=== PATIENT | male | born 1940 | race Caucasian/White ===

== ENCOUNTER 2020-07-03 00:29 | Inpatient (IN) | payer OTHER ==
[2020-07-03 01:51] LABS: BASO % 0.5 % (0-2.0); EOS % 1.8 % (0-4.5); HEMOGLOBIN 14.5 GM/dL (11.7-16.9); LYMPH % 16.3 % (8-40); MCH 31.7 pg (25.7-33.7); MCHC 33.8 g/dl (32.0-35.9); MEAN CELL VOLUME 93.9 fl (80-96); MEAN PLT VOLUME 7.9 fl (7.5-11.1); MONO % 8.1 % (3.8-10.2); NEUT % 73.3 % (42.8-82.8); PLATELET COUNT 239 K/MM3 (134-434); RBC 4.58 M/mm3 (4.00-5.60); RDW 13.4 % (11.9-15.9); WHITE BLOOD COUNT 10.8 K/mm3 (4.0-10.0)
[2020-07-03 02:17] LABS: ALBUMIN 3.4 g/dl (3.4-5.0); BLOOD UREA NITROGEN 28.4 mg/dL (7-18); CALCIUM 8.8 mg/dL (8.5-10.1)
[2020-07-03 02:22] LABS: BILIRUBIN,TOTAL 0.9 mg/dL (0.2-1); TOT PROT 6.5 g/dl (6.4-8.2)
[2020-07-03] MEDS ORDERED: POTASSIUM CHLORIDE TABS 20 MEQ TABLET.ER (FP) PO ONE ×2 (02:35→02:44)
[2020-07-03] MEDS ORDERED: MAGNESIUM SULF 50% (8.12 MEQ/2 ML-1 GM VIAL) IVPB ONE (02:35)
[2020-07-03] MEDS ORDERED: MAGNESIUM SULFATE IN WATER 2 GM/50 ML IVPB IVPB ONE (02:44)
[2020-07-03 03:12] LABS: EPI CELLS 14 /uL (0-25.1); HYALINE CASTS 1 /uL (0-3.1); URINE APPEARANCE CLEAR; URINE BACTERIA 5189 /uL (0-1359); URINE BILIRUBIN NEGATIVE (NEGATIVE); URINE COLOR YELLOW; URINE GLUCOSE (UA) NEGATIVE (NEGATIVE); URINE KETONE NEGATIVE (NEGATIVE); URINE LEUK ESTERASE NEGATIVE (NEGATIVE); URINE NITRITE POSITIVE (NEGATIVE); URINE PROTEIN 1+ (NEGATIVE); URINE RBC 16 /uL (0-23.9); URINE UROBILINOGEN 0.2 mg/dL (0.2-1.0)
[2020-07-03 11:37] LABS: URINE CRYSTALS NON SEEN /hpf; URINE WBC 65.6 /uL (0-25.8)
[2020-07-03] MEDS ORDERED: LISINOPRIL 20 MG TABLET ONE (12:47)
[2020-07-03] MEDS: LISINOPRIL 20 MG TABLET PO SCH (13:17)
[2020-07-03] MEDS ORDERED: cloNIDine HCL 0.1 MG TABLET ONE ×2 (14:19→22:09)
[2020-07-03] MEDS: cloNIDine HCL 0.1 MG TABLET PO SCH ×2 (14:36→22:13)
[2020-07-03] MEDS: INSULIN SLIDING SCALE (NOVOLOG) 1 VIAL SQ SCH (16:45)
[2020-07-03] MEDS ORDERED: ATORVASTATIN CA 10 MG TABLET (FP) ONE (22:09)
[2020-07-03] MEDS: ATORVASTATIN CA 10 MG TABLET (FP) PO SCH (22:13)
[2020-07-04 05:59] LABS: HEMATOCRIT 42.6 % (35.4-49); HEMOGLOBIN 14.5 GM/dL (11.7-16.9); LYMPH % 15.7 % (8-40); MCHC 34.1 g/dl (32.0-35.9); MEAN CELL VOLUME 93.9 fl (80-96); MONO % 8.3 % (3.8-10.2); PLATELET COUNT 213 K/MM3 (134-434); RBC 4.54 M/mm3 (4.00-5.60); RDW 13.5 % (11.9-15.9); WHITE BLOOD COUNT 8.6 K/mm3 (4.0-10.0)
[2020-07-04] MEDS ORDERED: cloNIDine HCL 0.1 MG TABLET ONE (06:12)
[2020-07-04] MEDS: cloNIDine HCL 0.1 MG TABLET PO SCH ×3 (06:15→21:55)
[2020-07-04 06:21] LABS: ALBUMIN 3.1 g/dl (3.4-5.0); BLOOD UREA NITROGEN 23.8 mg/dL (7-18); CALCIUM 7.8 mg/dL (8.5-10.1)
[2020-07-04 06:24] LABS: CREATININE 0.9 mg/dL (0.55-1.3)
[2020-07-04 06:26] LABS: BILIRUBIN,TOTAL 0.9 mg/dL (0.2-1)
[2020-07-04] MEDS ORDERED: TAMSULOSIN HCL 0.4 MG CAP ONE (07:28)
[2020-07-04] MEDS: INSULIN SLIDING SCALE (NOVOLOG) 1 VIAL SQ SCH ×3 (07:41→18:32)
[2020-07-04] MEDS ORDERED: LISINOPRIL 20 MG TABLET ONE (08:13)
[2020-07-04] MEDS: TAMSULOSIN HCL 0.4 MG CAP PO SCH (09:02)
[2020-07-04] MEDS: LISINOPRIL 20 MG TABLET PO SCH (09:02)
[2020-07-04 15:26] VITALS: BMI 26.7
[2020-07-04] MEDS: ATORVASTATIN CA 10 MG TABLET (FP) PO SCH (21:54)
[2020-07-05] MEDS: cloNIDine HCL 0.1 MG TABLET PO SCH ×3 (05:45→21:19)
[2020-07-05] MEDS: INSULIN SLIDING SCALE (NOVOLOG) 1 VIAL SQ SCH ×3 (06:01→16:37)
[2020-07-05 10:31] LABS: BASO % 0.9 % (0-2.0); EOS % 3.4 % (0-4.5); HEMATOCRIT 43.9 % (35.4-49); HEMOGLOBIN 14.7 GM/dL (11.7-16.9); LYMPH % 22.5 % (8-40); MCH 31.8 pg (25.7-33.7); MCHC 33.5 g/dl (32.0-35.9); MEAN CELL VOLUME 94.7 fl (80-96); MEAN PLT VOLUME 8.3 fl (7.5-11.1); MONO % 6.9 % (3.8-10.2); NEUT % 66.3 % (42.8-82.8); PLATELET COUNT 242 K/MM3 (134-434); RBC 4.64 M/mm3 (4.00-5.60); RDW 13.7 % (11.9-15.9); WHITE BLOOD COUNT 8.8 K/mm3 (4.0-10.0)
[2020-07-05 10:42] LABS: CALCIUM 8.7 mg/dL (8.5-10.1)
[2020-07-05 10:43] LABS: ALBUMIN 3.2 g/dl (3.4-5.0); BLOOD UREA NITROGEN 21.4 mg/dL (7-18); MAGNESIUM 2.2 mg/dL (1.8-2.4)
[2020-07-05 10:48] LABS: BILIRUBIN,TOTAL 1.3 mg/dL (0.2-1); TOT PROT 6.2 g/dl (6.4-8.2)
[2020-07-05] MEDS: TAMSULOSIN HCL 0.4 MG CAP PO SCH (11:12)
[2020-07-05] MEDS: ENOXAPARIN NA (PORCINE) 40 MG/0.4 ML DISP.SYRIN SQ SCH (11:12)
[2020-07-05] MEDS: LISINOPRIL 20 MG TABLET PO SCH (11:12)
[2020-07-05] MEDS: ATORVASTATIN CA 10 MG TABLET (FP) PO SCH (21:19)
[2020-07-06] MEDS: cloNIDine HCL 0.1 MG TABLET PO SCH ×3 (06:18→21:22)
[2020-07-06] MEDS: INSULIN SLIDING SCALE (NOVOLOG) 1 VIAL SQ SCH ×3 (06:19→18:12)
[2020-07-06] MEDS ORDERED: POTASSIUM CHLORIDE TABS 20 MEQ TABLET.ER (FP) PO ONE (08:30)
[2020-07-06] MEDS: ENOXAPARIN NA (PORCINE) 40 MG/0.4 ML DISP.SYRIN SQ SCH (11:46)
[2020-07-06] MEDS: LISINOPRIL 20 MG TABLET PO SCH (11:46)
[2020-07-06] MEDS: TAMSULOSIN HCL 0.4 MG CAP PO SCH (11:48)
[2020-07-06] MEDS: ATORVASTATIN CA 10 MG TABLET (FP) PO SCH (21:22)
[2020-07-07] MEDS: INSULIN SLIDING SCALE (NOVOLOG) 1 VIAL SQ SCH ×3 (06:30→16:50)
[2020-07-07] MEDS ORDERED: metFORMIN HCL 500 MG TABLET (FP) PO SCH (07:00)
[2020-07-07] MEDS: cloNIDine HCL 0.1 MG TABLET PO SCH ×2 (07:18→14:06)
[2020-07-07] MEDS: TAMSULOSIN HCL 0.4 MG CAP PO SCH (09:24)
[2020-07-07] MEDS: ENOXAPARIN NA (PORCINE) 40 MG/0.4 ML DISP.SYRIN SQ SCH (09:25)
[2020-07-07] MEDS: LISINOPRIL 20 MG TABLET PO SCH (09:25)
[2020-07-07 10:46] VITALS: TEMP 98.3
[2020-07-07 13:35] VITALS: BP 149/76; PULSE 74
== END 2020-07-07 16:40 | DRG 690 ==
LOC: JER 00:29 → JERBED 04:32 → J6WEST-2 07-04 10:31
PROVIDERS: ADMIT Internal Medicine; ATTEND Internal Medicine
DX: N39.0 Urinary tract infection, site not specified (principal); E87.0 Hyperosmolality and hypernatremia; I10 Essential (primary) hypertension; E11.9 Type 2 diabetes mellitus without complications; W19.XXXA Unspecified fall, initial encounter; E87.6 Hypokalemia; R26.9 Unspecified abnormalities of gait and mobility; R91.1 Solitary pulmonary nodule; E78.5 Hyperlipidemia, unspecified; N40.0 Benign prostatic hyperplasia without lower urinary tract symptoms; R53.1 Weakness
CPT/HCPCS: 36415; 70450-TC; 71045-TC-FY; 72125-TC; 80053; 81003; 82962; 83735; 84443; 84484; 85025; 87040; 87086; 87186; 93005; 93010; 97116-GP; 97162-GP; 99285-25; C9803; J0735; U0003

== ENCOUNTER 2021-06-25 14:12 | Inpatient (IN) | payer OTHER ==
[2021-06-25 16:08] LABS: BASO % 0.4 % (0-2.0); CHLORIDE 106 mmol/L (98-107); HEMATOCRIT 45.5 % (35.4-49); HEMOGLOBIN 15.5 GM/dL (11.7-16.9); LYMPH % 13.8 % (8-40); MCH 31.7 pg (25.7-33.7); MEAN CELL VOLUME 93.1 fl (80-96); MEAN PLT VOLUME 7.8 fl (7.5-11.1); MONO % 15.7 % (3.8-10.2); NEUT % 70.1 % (42.8-82.8); PLATELET COUNT 223 10^3/uL (134-434); RBC 4.89 M/mm3 (4.00-5.60); RDW 13.9 % (11.9-15.9); SODIUM 142 mmol/L (136-145); WHITE BLOOD COUNT 6.2 K/mm3 (4.0-10.0)
[2021-06-25 16:10] LABS: ALBUMIN 3.3 g/dl (3.4-5.0); ANION GAP 10 MMOL/L (8-16); BLOOD UREA NITROGEN 19.5 mg/dL (7-18); CALCIUM 8.6 mg/dL (8.5-10.1); CO2 26 mmol/L (21-32); GLUCOSE,RANDOM 103 mg/dL (74-106); MAGNESIUM 2.1 mg/dL (1.8-2.4)
[2021-06-25 16:13] LABS: CREATININE 0.9 mg/dL (0.55-1.3); SGOT/AST 72 U/L (15-37); SGPT/ALT 49 U/L (13-61)
[2021-06-25 16:15] LABS: BILIRUBIN,TOTAL 0.7 mg/dL (0.2-1); TOT PROT 6.9 g/dl (6.4-8.2)
[2021-06-25 16:16] LABS: ALK PHOS 112 U/L (45-117)
[2021-06-25 16:22] LABS: INR 1.11 (0.83-1.09)
[2021-06-25 16:25] LABS: ACTIVATED PTT 27.1 SECONDS (25.2-36.5)
[2021-06-25] MEDS ORDERED: SODIUM CHLORIDE 2,517 ML IV ONE (17:35)
[2021-06-25 17:37] LABS: CALCIUM 8.6 mg/dL (8.5-10.1)
[2021-06-25 17:38] LABS: ALBUMIN 3.4 g/dl (3.4-5.0); BLOOD UREA NITROGEN 19.6 mg/dL (7-18)
[2021-06-25 17:41] LABS: CREATININE 0.9 mg/dL (0.55-1.3)
[2021-06-25 17:42] LABS: TOT PROT 7.1 g/dl (6.4-8.2)
[2021-06-25 17:43] LABS: BILIRUBIN,TOTAL 0.8 mg/dL (0.2-1)
[2021-06-25 17:57] LABS: VENOUS BASE EXCESS -0.1 mmol/L (-2-2); VENOUS O2 SATURATION 45.2 % (70-80); VENOUS PCO2 46.8 mmHg (38-52); VENOUS PH 7.36 (7.310-7.410)
[2021-06-25 18:26] LABS: EPI CELLS 4 /uL (0-25.1); HYALINE CASTS 9 /uL (0-3.1); URINE APPEARANCE CLOUDY; URINE BACTERIA >9,000 /uL (0-1359); URINE BILIRUBIN NEGATIVE (NEGATIVE); URINE COLOR YELLOW; URINE GLUCOSE (UA) NEGATIVE (NEGATIVE); URINE KETONE 1+ (NEGATIVE); URINE LEUK ESTERASE 2+ (NEGATIVE); URINE NITRITE POSITIVE (NEGATIVE); URINE PROTEIN 1+ (NEGATIVE); URINE RBC 149 /uL (0-23.9); URINE UROBILINOGEN 0.2 mg/dL (0.2-1.0); URINE WBC 380 /uL (0-25.8)
[2021-06-25] MEDS ORDERED: CEFTRIAXONE 1,000 MG in DEXTROSE 5%-WATER - 50 ML IVPB ONE (18:45)
[2021-06-25] MEDS ORDERED: ACETAMINOPHEN 1000 MG/100 ML BAG IVPB ONE (18:59)
[2021-06-25] MEDS ORDERED: ACETAMINOPHEN INJECTION 100 ML IVPB ONE (19:32)
[2021-06-25] MEDS ORDERED: CEFTRIAXONE 1 GM/50 ML BAG ONE (19:32)
[2021-06-26] MEDS ORDERED: POLYETHYLENE GLYCOL (HEALTHYLAX) 3350 17 GM PACKET PO PRN (00:22)
[2021-06-26] MEDS ORDERED: ACETAMINOPHEN 325 MG TABLET (FP) PO PRN (00:22)
[2021-06-26] MEDS: TAMSULOSIN HCL 0.4 MG CAP PO SCH (10:00)
[2021-06-26] MEDS ORDERED: CEFTRIAXONE 1 GM/50 ML BAG ONE (11:56)
[2021-06-26] MEDS ORDERED: ENOXAPARIN NA (PORCINE) 40 MG/0.4 ML DISP.SYRIN SQ ONE (11:56)
[2021-06-26] MEDS ORDERED: LISINOPRIL 20 MG TABLET ONE (11:56)
[2021-06-26] MEDS ORDERED: TAMSULOSIN HCL 0.4 MG CAP ONE (11:56)
[2021-06-26] MEDS: LISINOPRIL 20 MG TABLET PO SCH (11:59)
[2021-06-26] MEDS: ENOXAPARIN NA (PORCINE) 40 MG/0.4 ML DISP.SYRIN SQ SCH (11:59)
[2021-06-26] MEDS: CEFTRIAXONE 1 GM in DEXTROSE 5%-WATER - 50 ML IVPB SCH (11:59)
[2021-06-26 12:02] LABS: BASO % 0.5 % (0-2.0); EOS % 0.5 % (0-4.5); HEMATOCRIT 42.8 % (35.4-49); HEMOGLOBIN 14.4 GM/dL (11.7-16.9); LYMPH % 23.2 % (8-40); MCH 31.7 pg (25.7-33.7); MCHC 33.7 g/dl (32.0-35.9); MEAN CELL VOLUME 94.1 fl (80-96); MEAN PLT VOLUME 7.6 fl (7.5-11.1); MONO % 13.7 % (3.8-10.2); NEUT % 62.1 % (42.8-82.8); PLATELET COUNT 186 10^3/uL (134-434); RBC 4.55 M/mm3 (4.00-5.60); RDW 13.5 % (11.9-15.9); WHITE BLOOD COUNT 4.7 K/mm3 (4.0-10.0)
[2021-06-26 12:21] LABS: CHLORIDE 110 mmol/L (98-107); SODIUM 143 mmol/L (136-145)
[2021-06-26 12:25] LABS: ANION GAP 8 MMOL/L (8-16); BLOOD UREA NITROGEN 23.5 mg/dL (7-18); CALCIUM 8.1 mg/dL (8.5-10.1); CO2 26 mmol/L (21-32); GLUCOSE,RANDOM 96 mg/dL (74-106)
[2021-06-26] MEDS: cloNIDine HCL 0.1 MG TABLET PO SCH ×3 (22:08→22:41)
[2021-06-26] MEDS ORDERED: cloNIDine HCL 0.1 MG TABLET ONE (22:18)
[2021-06-26] MEDS ORDERED: ATORVASTATIN CA 10 MG TABLET (FP) ONE (22:19)
[2021-06-26] MEDS: ATORVASTATIN CA 10 MG TABLET (FP) PO SCH (22:42)
[2021-06-27] MEDS ORDERED: cloNIDine HCL 0.1 MG TABLET ONE ×2 (05:55→14:02)
[2021-06-27] MEDS: cloNIDine HCL 0.1 MG TABLET PO SCH ×3 (06:05→22:23)
[2021-06-27 07:28] LABS: CALCIUM 7.8 mg/dL (8.5-10.1)
[2021-06-27 07:29] LABS: BLOOD UREA NITROGEN 20.8 mg/dL (7-18)
[2021-06-27 07:32] LABS: CREATININE 0.9 mg/dL (0.55-1.3)
[2021-06-27 08:58] LABS: BASO % 0.4 % (0-2.0); EOS % 0.7 % (0-4.5); HEMATOCRIT 42.3 % (35.4-49); HEMOGLOBIN 14.3 GM/dL (11.7-16.9); LYMPH % 24.1 % (8-40); MCH 31.4 pg (25.7-33.7); MCHC 33.8 g/dl (32.0-35.9); MEAN CELL VOLUME 93.1 fl (80-96); MONO % 12.9 % (3.8-10.2); NEUT % 61.9 % (42.8-82.8); PLATELET COUNT 194 10^3/uL (134-434); RBC 4.54 M/mm3 (4.00-5.60); RDW 13.4 % (11.9-15.9); WHITE BLOOD COUNT 4.2 K/mm3 (4.0-10.0)
[2021-06-27] MEDS ORDERED: POTASSIUM CHLORIDE TABS 20 MEQ TABLET.ER (FP) PO ONE ×2 (09:00→10:59)
[2021-06-27] MEDS ORDERED: POTASSIUM CHLORIDE 10 MEQ in SODIUM CHLORIDE 0.45% 1,000 ML IVPB SCH (09:15)
[2021-06-27] MEDS ORDERED: LISINOPRIL 20 MG TABLET ONE (10:59)
[2021-06-27] MEDS ORDERED: ENOXAPARIN NA (PORCINE) 40 MG/0.4 ML DISP.SYRIN SQ ONE (11:00)
[2021-06-27] MEDS ORDERED: TAMSULOSIN HCL 0.4 MG CAP ONE (11:00)
[2021-06-27] MEDS: LISINOPRIL 20 MG TABLET PO SCH (11:26)
[2021-06-27] MEDS: SODIUM CHLORIDE 0.45% 1,000 ML IV SCH (11:26)
[2021-06-27] MEDS: ENOXAPARIN NA (PORCINE) 40 MG/0.4 ML DISP.SYRIN SQ SCH (11:26)
[2021-06-27] MEDS: TAMSULOSIN HCL 0.4 MG CAP PO SCH (11:26)
[2021-06-27] MEDS: CEFTRIAXONE 1 GM in DEXTROSE 5%-WATER - 50 ML IVPB SCH (11:27)
[2021-06-27] MEDS ORDERED: REMDESIVIR 200 MG in SODIUM CHLORIDE 250 ML IVPB ONE (18:00)
[2021-06-27] MEDS: ATORVASTATIN CA 10 MG TABLET (FP) PO SCH (22:23)
[2021-06-28 00:36] VITALS: BMI 25.5
[2021-06-28] MEDS: cloNIDine HCL 0.1 MG TABLET PO SCH ×3 (05:44→21:03)
[2021-06-28] MEDS ORDERED: DEXTROSE 5%-WATER - 50 ML IVPB ONE (10:04)
[2021-06-28] MEDS ORDERED: cefTRIAXone SODIUM 1 GM VIAL ONE (10:04)
[2021-06-28] MEDS: LISINOPRIL 20 MG TABLET PO SCH (10:24)
[2021-06-28] MEDS: CEFTRIAXONE 1 GM in DEXTROSE 5%-WATER - 50 ML IVPB SCH (10:24)
[2021-06-28] MEDS: TAMSULOSIN HCL 0.4 MG CAP PO SCH (10:24)
[2021-06-28] MEDS: ENOXAPARIN NA (PORCINE) 40 MG/0.4 ML DISP.SYRIN SQ SCH (11:13)
[2021-06-28 12:00] LABS: BLOOD UREA NITROGEN 25.4 mg/dL (7-18)
[2021-06-28 12:03] LABS: CALCIUM 8.1 mg/dL (8.5-10.1); CREATININE 0.8 mg/dL (0.55-1.3)
[2021-06-28 12:05] LABS: BILIRUBIN,TOTAL 0.6 mg/dL (0.2-1); TOT PROT 5.8 g/dl (6.4-8.2)
[2021-06-28 12:14] LABS: ALBUMIN 2.6 g/dl (3.4-5.0)
[2021-06-28] MEDS: REMDESIVIR 100 MG in SODIUM CHLORIDE 250 ML IVPB SCH (17:38)
[2021-06-28] MEDS: ATORVASTATIN CA 10 MG TABLET (FP) PO SCH (21:03)
[2021-06-29] MEDS: cloNIDine HCL 0.1 MG TABLET PO SCH ×3 (06:38→21:20)
[2021-06-29] MEDS: LISINOPRIL 20 MG TABLET PO SCH (11:38)
[2021-06-29] MEDS: ENOXAPARIN NA (PORCINE) 40 MG/0.4 ML DISP.SYRIN SQ SCH (11:38)
[2021-06-29] MEDS: TAMSULOSIN HCL 0.4 MG CAP PO SCH (11:38)
[2021-06-29] MEDS: CEPHALEXIN MONOHYDRATE 500 MG CAPSULE (UD) PO SCH ×2 (11:38→21:19)
[2021-06-29] MEDS: SODIUM CHLORIDE 0.45% 1,000 ML IV SCH (11:39)
[2021-06-29] MEDS: REMDESIVIR 100 MG in SODIUM CHLORIDE 250 ML IVPB SCH (17:22)
[2021-06-29] MEDS: ATORVASTATIN CA 10 MG TABLET (FP) PO SCH (21:20)
[2021-06-30] MEDS: cloNIDine HCL 0.1 MG TABLET PO SCH ×3 (06:10→22:07)
[2021-06-30] MEDS: CEPHALEXIN MONOHYDRATE 500 MG CAPSULE (UD) PO SCH ×2 (12:13→22:07)
[2021-06-30] MEDS: LISINOPRIL 20 MG TABLET PO SCH (12:13)
[2021-06-30] MEDS: ENOXAPARIN NA (PORCINE) 40 MG/0.4 ML DISP.SYRIN SQ SCH (12:13)
[2021-06-30] MEDS: TAMSULOSIN HCL 0.4 MG CAP PO SCH (12:13)
[2021-06-30] MEDS: ATORVASTATIN CA 10 MG TABLET (FP) PO SCH (22:07)
[2021-07-01] MEDS: cloNIDine HCL 0.1 MG TABLET PO SCH (05:48)
[2021-07-01] MEDS ORDERED: PT OWN MED DRAWER 7, Y5N ONE (09:49)
[2021-07-01] MEDS: ENOXAPARIN NA (PORCINE) 40 MG/0.4 ML DISP.SYRIN SQ SCH (09:54)
[2021-07-01] MEDS: LISINOPRIL 20 MG TABLET PO SCH (09:54)
[2021-07-01] MEDS: TAMSULOSIN HCL 0.4 MG CAP PO SCH (09:55)
[2021-07-01] MEDS: CEPHALEXIN MONOHYDRATE 500 MG CAPSULE (UD) PO SCH (09:55)
[2021-07-01 10:40] VITALS: BP 138/69; PULSE 80; TEMP 98.2
== END 2021-07-01 10:48 | disposition home health service (06) | DRG 178 ==
LOC: JER 14:12 → JERBED 15:28 → J5S 06-27 21:38
PROVIDERS: ADMIT Hospitalist; ATTEND Internal Medicine
DX: U07.1 COVID-19 (principal); M62.82 Rhabdomyolysis; N39.0 Urinary tract infection, site not specified; I10 Essential (primary) hypertension; E11.9 Type 2 diabetes mellitus without complications; I44.0 Atrioventricular block, first degree; R55 Syncope and collapse; Z88.0 Allergy status to penicillin; B96.20 Unspecified Escherichia coli [E. coli] as the cause of diseases classified elsewhere
CPT/HCPCS: 36415; 70450-TC; 71045-TC-FY; 72125-TC; 72170-TC-FY; 73552-TC-LT-FY; 80048; 80053; 81003; 82550; 82553; 82803; 82962; 83605; 83735; 84484; 85025; 85610; 85730; 86140; 86850; 86900; 86901; 87040; 87086; 87186; 93005; 93010; 97116-GP; 97161-GP; 99285-25; C9399; C9803; J0131; J0735; U0003; U0005

== ENCOUNTER 2021-11-29 09:16 | Inpatient (IN) | payer OTHER ==
[2021-11-29 09:37] VITALS: BMI 25.8
[2021-11-29] MEDS ORDERED: SODIUM CHLORIDE 0.9% 1000 ML INFUS.BAG IV ONE ×2 (10:26→13:35)
[2021-11-29 11:18] LABS: BASO % 0.3 % (0-2.0); HEMATOCRIT 43.9 % (35.4-49); HEMOGLOBIN 14.8 GM/dL (11.7-16.9); LYMPH % 7.7 % (8-40); MCH 31.5 pg (25.7-33.7); MCHC 33.7 g/dl (32.0-35.9); MEAN CELL VOLUME 93.4 fl (80-96); MONO % 10.2 % (3.8-10.2); NEUT % 81.8 % (42.8-82.8); PLATELET COUNT 190 10^3/uL (134-434); RDW 14.4 % (11.9-15.9); WHITE BLOOD COUNT 11.5 K/mm3 (4.0-10.0)
[2021-11-29] MEDS ORDERED: dilTIAZem HCL 50 MG/10 ML - 10 ML VIAL IVPUSH ONE (11:29)
[2021-11-29 11:39] LABS: CHLORIDE 108 mmol/L (98-107); SODIUM 142 mmol/L (136-145)
[2021-11-29 11:41] LABS: ALBUMIN 3.5 g/dl (3.4-5.0)
[2021-11-29 11:42] LABS: ANION GAP 13 MMOL/L (8-16); BLOOD UREA NITROGEN 44.8 mg/dL (7-18); CO2 22 mmol/L (21-32); GLUCOSE,RANDOM 189 mg/dL (74-106)
[2021-11-29 11:44] LABS: CREATININE 2.3 mg/dL (0.55-1.3)
[2021-11-29 11:45] LABS: SGOT/AST 103 U/L (15-37); SGPT/ALT 45 U/L (13-61)
[2021-11-29 11:46] LABS: BILIRUBIN,TOTAL 1.4 mg/dL (0.2-1); TOT PROT 7.2 g/dl (6.4-8.2)
[2021-11-29 11:48] LABS: ALK PHOS 120 U/L (45-117)
[2021-11-29 14:33] LABS: EPI CELLS 2 /uL (0-25.1); HYALINE CASTS 2 /uL (0-3.1); PH,URINE 5.5 (5.0-8.0); URINE APPEARANCE CLEAR; URINE BACTERIA >9,000 /uL (0-1359); URINE BILIRUBIN NEGATIVE (NEGATIVE); URINE COLOR YELLOW; URINE GLUCOSE (UA) NEGATIVE (NEGATIVE); URINE KETONE TRACE (NEGATIVE); URINE LEUK ESTERASE 1+ (NEGATIVE); URINE NITRITE POSITIVE (NEGATIVE); URINE PROTEIN 1+ (NEGATIVE); URINE RBC 128 /uL (0-23.9); URINE UROBILINOGEN 0.2 mg/dL (0.2-1.0); URINE WBC 148 /uL (0-25.8)
[2021-11-29] MEDS ORDERED: SODIUM CHLORIDE 1,000 ML IV SCH (17:15)
[2021-11-29] MEDS ORDERED: CEFTRIAXONE 1,000 MG in DEXTROSE 5%-WATER - 50 ML IVPB SCH (17:30)
[2021-11-29] MEDS ORDERED: CEFTRIAXONE 1 GM/50 ML BAG ONE (18:12)
[2021-11-29 18:42] LABS: CHLORIDE 113 mmol/L (98-107); SODIUM 146 mmol/L (136-145)
[2021-11-29 18:43] LABS: CALCIUM 8.4 mg/dL (8.5-10.1)
[2021-11-29 18:44] LABS: ANION GAP 7 MMOL/L (8-16); BLOOD UREA NITROGEN 41.9 mg/dL (7-18); CO2 26 mmol/L (21-32); GLUCOSE,RANDOM 138 mg/dL (74-106)
[2021-11-29 18:47] LABS: CREATININE 1.6 mg/dL (0.55-1.3)
[2021-11-29] MEDS: SODIUM CHLORIDE 0.45% 1,000 ML IV SCH (22:19)
[2021-11-29] MEDS: ATORVASTATIN CA 10 MG TABLET (FP) PO SCH (22:20)
[2021-11-30 07:31] LABS: BASO % 0.2 % (0-2.0); HEMATOCRIT 40.6 % (35.4-49); HEMOGLOBIN 13.6 GM/dL (11.7-16.9); LYMPH % 6.3 % (8-40); MCH 31.2 pg (25.7-33.7); MCHC 33.6 g/dl (32.0-35.9); MEAN CELL VOLUME 92.9 fl (80-96); MEAN PLT VOLUME 8.5 fl (7.5-11.1); MONO % 8.4 % (3.8-10.2); NEUT % 85.1 % (42.8-82.8); PLATELET COUNT 154 10^3/uL (134-434); RBC 4.37 M/mm3 (4.00-5.60); RDW 14.2 % (11.9-15.9)
[2021-11-30 07:54] LABS: CHLORIDE 112 mmol/L (98-107); SODIUM 146 mmol/L (136-145)
[2021-11-30 07:57] LABS: CALCIUM 8.2 mg/dL (8.5-10.1)
[2021-11-30 07:58] LABS: ALBUMIN 2.9 g/dl (3.4-5.0); ANION GAP 9 MMOL/L (8-16); BLOOD UREA NITROGEN 32.5 mg/dL (7-18); CO2 26 mmol/L (21-32); GLUCOSE,RANDOM 142 mg/dL (74-106)
[2021-11-30 08:01] LABS: CREATININE 1.2 mg/dL (0.55-1.3); SGOT/AST 126 U/L (15-37); SGPT/ALT 59 U/L (13-61)
[2021-11-30 08:02] LABS: TOT PROT 5.9 g/dl (6.4-8.2)
[2021-11-30 08:03] LABS: BILIRUBIN,TOTAL 1.9 mg/dL (0.2-1)
[2021-11-30 08:04] LABS: ALK PHOS 92 U/L (45-117)
[2021-11-30] MEDS ORDERED: DEXTROSE 5%-WATER - 50 ML IVPB ONE (09:13)
[2021-11-30] MEDS ORDERED: cefTRIAXone SODIUM 1 GM VIAL ONE (09:13)
[2021-11-30] MEDS: CEFTRIAXONE 1 GM in DEXTROSE 5%-WATER - 50 ML IVPB SCH (09:31)
[2021-11-30] MEDS: TAMSULOSIN HCL 0.4 MG CAP PO SCH (09:32)
[2021-11-30] MEDS ORDERED: ENOXAPARIN NA (PORCINE) 30 MG/0.3 ML DISP.SYRIN SQ SCH (10:00)
[2021-11-30] MEDS ORDERED: METOPROLOL TARTRATE 5 MG/5 ML VIAL IVPUSH ONE (10:30)
[2021-11-30 13:25] LABS: N-TERMINAL BNP 711.4 pg/ml (5-450)
[2021-11-30] MEDS ORDERED: metoPROLOL SUCCINATE 25 MG TAB.SR.24H (FP) PO ONE (14:42)
[2021-11-30] MEDS: METOPROLOL TARTRATE 5 MG/5 ML VIAL IVPUSH PRN ×2 (17:34→22:52)
[2021-11-30] MEDS: ATORVASTATIN CA 10 MG TABLET (FP) PO SCH (21:58)
[2021-11-30] MEDS: APIXABAN 5 MG TABLET PO SCH (21:58)
[2021-11-30] MEDS: SODIUM CHLORIDE 0.45% 1,000 ML IV SCH (22:47)
[2021-12-01] MEDS ORDERED: LORazepam 2 MG/ML SDV VIAL IVPUSH ONE (04:36)
[2021-12-01 08:25] LABS: HEMATOCRIT 43.3 % (35.4-49); HEMOGLOBIN 14.4 GM/dL (11.7-16.9); MCH 31.3 pg (25.7-33.7); MCHC 33.3 g/dl (32.0-35.9); MEAN PLT VOLUME 9.1 fl (7.5-11.1); PLATELET COUNT 153 10^3/uL (134-434); RDW 14.5 % (11.9-15.9)
[2021-12-01 08:43] LABS: ALBUMIN 2.9 g/dl (3.4-5.0)
[2021-12-01 08:47] LABS: CREATININE 0.8 mg/dL (0.55-1.3)
[2021-12-01 08:48] LABS: BILIRUBIN,TOTAL 1.6 mg/dL (0.2-1); TOT PROT 5.9 g/dl (6.4-8.2)
[2021-12-01] MEDS ORDERED: DEXTROSE 5%-WATER - 50 ML IVPB ONE (10:21)
[2021-12-01] MEDS ORDERED: cefTRIAXone SODIUM 1 GM VIAL ONE (10:21)
[2021-12-01] MEDS: CEFTRIAXONE 1 GM in DEXTROSE 5%-WATER - 50 ML IVPB SCH (10:23)
[2021-12-01] MEDS: TAMSULOSIN HCL 0.4 MG CAP PO SCH (10:24)
[2021-12-01] MEDS: APIXABAN 5 MG TABLET PO SCH ×2 (10:24→22:05)
[2021-12-01] MEDS: SODIUM CHLORIDE 0.45% 1,000 ML IV SCH ×2 (15:30→22:05)
[2021-12-01] MEDS: QUEtiapine FUMARATE 25 MG TABLET PO SCH (22:05)
[2021-12-01] MEDS: ATORVASTATIN CA 10 MG TABLET (FP) PO SCH (22:05)
[2021-12-02] MEDS: SODIUM CHLORIDE 0.45% 1,000 ML IV SCH ×2 (03:39→17:25)
[2021-12-02 08:11] LABS: HEMATOCRIT 39.3 % (35.4-49); MCH 31.2 pg (25.7-33.7); MCHC 33.2 g/dl (32.0-35.9); MEAN CELL VOLUME 94.1 fl (80-96); MEAN PLT VOLUME 9.1 fl (7.5-11.1); PLATELET COUNT 160 10^3/uL (134-434); RBC 4.18 M/mm3 (4.00-5.60); WHITE BLOOD COUNT 9.9 K/mm3 (4.0-10.0)
[2021-12-02 08:21] LABS: CALCIUM 7.8 mg/dL (8.5-10.1)
[2021-12-02 08:22] LABS: ALBUMIN 2.6 g/dl (3.4-5.0)
[2021-12-02 08:25] LABS: BILIRUBIN,TOTAL 1.6 mg/dL (0.2-1); TOT PROT 5.6 g/dl (6.4-8.2)
[2021-12-02 08:28] LABS: BLOOD UREA NITROGEN 26.7 mg/dL (7-18)
[2021-12-02] MEDS ORDERED: cefTRIAXone SODIUM 1 GM VIAL ONE (09:31)
[2021-12-02] MEDS ORDERED: DEXTROSE 5%-WATER - 50 ML IVPB ONE (09:32)
[2021-12-02] MEDS: CEFTRIAXONE 1 GM in DEXTROSE 5%-WATER - 50 ML IVPB SCH (10:06)
[2021-12-02] MEDS: APIXABAN 5 MG TABLET PO SCH ×2 (10:06→21:01)
[2021-12-02] MEDS: TAMSULOSIN HCL 0.4 MG CAP PO SCH (10:06)
[2021-12-02] MEDS: QUEtiapine FUMARATE 25 MG TABLET PO SCH (21:01)
[2021-12-02] MEDS: ATORVASTATIN CA 10 MG TABLET (FP) PO SCH (21:01)
[2021-12-03 07:00] LABS: HEMATOCRIT 37.8 % (35.4-49); HEMOGLOBIN 12.8 GM/dL (11.7-16.9); MCH 31.9 pg (25.7-33.7); MCHC 33.8 g/dl (32.0-35.9); MEAN CELL VOLUME 94.4 fl (80-96); MEAN PLT VOLUME 8.6 fl (7.5-11.1); PLATELET COUNT 169 10^3/uL (134-434); RBC 4.01 M/mm3 (4.00-5.60)
[2021-12-03 07:36] LABS: CALCIUM 7.4 mg/dL (8.5-10.1)
[2021-12-03 07:37] LABS: ALBUMIN 2.3 g/dl (3.4-5.0); BLOOD UREA NITROGEN 21.5 mg/dL (7-18)
[2021-12-03 07:40] LABS: CREATININE 0.8 mg/dL (0.55-1.3)
[2021-12-03 07:42] LABS: BILIRUBIN,TOTAL 1.3 mg/dL (0.2-1); TOT PROT 5.2 g/dl (6.4-8.2)
[2021-12-03] MEDS ORDERED: cefTRIAXone SODIUM 1 GM VIAL ONE (08:04)
[2021-12-03] MEDS ORDERED: DEXTROSE 5%-WATER - 50 ML IVPB ONE (08:04)
[2021-12-03] MEDS: TAMSULOSIN HCL 0.4 MG CAP PO SCH (09:18)
[2021-12-03] MEDS: APIXABAN 5 MG TABLET PO SCH ×2 (09:18→21:38)
[2021-12-03] MEDS: CEFTRIAXONE 1 GM in DEXTROSE 5%-WATER - 50 ML IVPB SCH (09:18)
[2021-12-03 16:51] LABS: MAGNESIUM 1.9 mg/dL (1.8-2.4)
[2021-12-03 16:55] LABS: PHOSPHOROUS 2.7 mg/dL (2.5-4.9)
[2021-12-03 16:59] LABS: N-TERMINAL BNP 2501.4 pg/ml (5-450)
[2021-12-03] MEDS: ATORVASTATIN CA 10 MG TABLET (FP) PO SCH (21:38)
[2021-12-03] MEDS: QUEtiapine FUMARATE 25 MG TABLET PO SCH (21:38)
[2021-12-04] MEDS: TAMSULOSIN HCL 0.4 MG CAP PO SCH (09:25)
[2021-12-04] MEDS ORDERED: cefTRIAXone SODIUM 1 GM VIAL ONE (09:34)
[2021-12-04] MEDS ORDERED: DEXTROSE 5%-WATER - 50 ML IVPB ONE (09:34)
[2021-12-04] MEDS: CEFTRIAXONE 1 GM in DEXTROSE 5%-WATER - 50 ML IVPB SCH (09:44)
[2021-12-04] MEDS: APIXABAN 5 MG TABLET PO SCH ×2 (09:46→21:17)
[2021-12-04] MEDS: ACETAMINOPHEN 325 MG TABLET (FP) PO PRN ×2 (13:35→21:17)
[2021-12-04] MEDS: ATORVASTATIN CA 10 MG TABLET (FP) PO SCH (21:17)
[2021-12-04] MEDS: QUEtiapine FUMARATE 25 MG TABLET PO SCH (21:17)
[2021-12-05] MEDS ORDERED: DEXTROSE 5%-WATER - 50 ML IVPB ONE (09:26)
[2021-12-05] MEDS ORDERED: cefTRIAXone SODIUM 1 GM VIAL ONE (09:26)
[2021-12-05] MEDS: TAMSULOSIN HCL 0.4 MG CAP PO SCH (10:12)
[2021-12-05] MEDS: APIXABAN 5 MG TABLET PO SCH ×2 (10:12→22:01)
[2021-12-05] MEDS: CEFTRIAXONE 1 GM in DEXTROSE 5%-WATER - 50 ML IVPB SCH (10:13)
[2021-12-05] MEDS: ATORVASTATIN CA 10 MG TABLET (FP) PO SCH (22:01)
[2021-12-05] MEDS: QUEtiapine FUMARATE 25 MG TABLET PO SCH (22:01)
[2021-12-06 07:03] LABS: HEMATOCRIT 44.9 % (35.4-49); HEMOGLOBIN 14.8 GM/dL (11.7-16.9); MCH 30.9 pg (25.7-33.7); MCHC 33.1 g/dl (32.0-35.9); MEAN CELL VOLUME 93.4 fl (80-96); MEAN PLT VOLUME 7.5 fl (7.5-11.1); PLATELET COUNT 282 10^3/uL (134-434)
[2021-12-06 07:28] LABS: CALCIUM 8.4 mg/dL (8.5-10.1)
[2021-12-06 07:29] LABS: ALBUMIN 2.7 g/dl (3.4-5.0); BLOOD UREA NITROGEN 11.6 mg/dL (7-18)
[2021-12-06 07:31] LABS: CREATININE 0.8 mg/dL (0.55-1.3)
[2021-12-06 07:32] LABS: BILIRUBIN,TOTAL 1.4 mg/dL (0.2-1)
[2021-12-06 07:33] LABS: TOT PROT 6.3 g/dl (6.4-8.2)
[2021-12-06] MEDS ORDERED: REGADENOSON 0.4 MG/5 ML PRE-FILLED SYRINGE IVPUSH ONE ×2 (10:05→11:30)
[2021-12-06] MEDS: TAMSULOSIN HCL 0.4 MG CAP PO SCH (13:40)
[2021-12-06] MEDS: APIXABAN 5 MG TABLET PO SCH ×2 (13:41→21:32)
[2021-12-06] MEDS: ACETAMINOPHEN 325 MG TABLET (FP) PO PRN (18:16)
[2021-12-06] MEDS: ATORVASTATIN CA 10 MG TABLET (FP) PO SCH (21:32)
[2021-12-06] MEDS: QUEtiapine FUMARATE 25 MG TABLET PO SCH (21:32)
[2021-12-07] MEDS: APIXABAN 5 MG TABLET PO SCH (10:07)
[2021-12-07] MEDS: TAMSULOSIN HCL 0.4 MG CAP PO SCH (10:07)
[2021-12-07] MEDS: DOCUSATE SODIUM 100 MG CAPSULE (FP) PO SCH ×2 (14:04→21:09)
[2021-12-07] MEDS: ACETAMINOPHEN 325 MG TABLET (FP) PO PRN (14:10)
[2021-12-07] MEDS: ATORVASTATIN CA 10 MG TABLET (FP) PO SCH (21:09)
[2021-12-07] MEDS: QUEtiapine FUMARATE 25 MG TABLET PO SCH (21:09)
[2021-12-08] MEDS: DOCUSATE SODIUM 100 MG CAPSULE (FP) PO SCH ×2 (05:56→14:44)
[2021-12-08 08:43] LABS: ALBUMIN 2.5 g/dl (3.4-5.0); BLOOD UREA NITROGEN 22.6 mg/dL (7-18); CALCIUM 8.2 mg/dL (8.5-10.1)
[2021-12-08 08:46] LABS: CREATININE 0.8 mg/dL (0.55-1.3)
[2021-12-08 08:47] LABS: BILIRUBIN,TOTAL 1.1 mg/dL (0.2-1)
[2021-12-08 08:48] LABS: TOT PROT 6.2 g/dl (6.4-8.2)
[2021-12-08] MEDS: TAMSULOSIN HCL 0.4 MG CAP PO SCH (09:08)
[2021-12-08 10:01] VITALS: BP 136/90; PULSE 82; TEMP 98.3
== END 2021-12-08 15:01 | disposition short-term general hospital (02) | DRG 682 ==
LOC: JER 09:16 → JERBED 13:36 → J4W 21:53
PROVIDERS: ADMIT Internal Medicine; ATTEND Internal Medicine
DX: N17.9 Acute kidney failure, unspecified (principal); I21.4 Non-ST elevation (NSTEMI) myocardial infarction; M62.82 Rhabdomyolysis; N39.0 Urinary tract infection, site not specified; E87.0 Hyperosmolality and hypernatremia; I47.1 Supraventricular tachycardia; I24.9 Acute ischemic heart disease, unspecified; E86.0 Dehydration; B96.20 Unspecified Escherichia coli [E. coli] as the cause of diseases classified elsewhere; I48.91 Unspecified atrial fibrillation; I10 Essential (primary) hypertension; E78.5 Hyperlipidemia, unspecified; R31.9 Hematuria, unspecified; D72.829 Elevated white blood cell count, unspecified; K57.90 Diverticulosis of intestine, part unspecified, without perforation or abscess without bleeding; I49.9 Cardiac arrhythmia, unspecified
CPT/HCPCS: 36415; 70450-TC; 71045-TC-FY; 71250-TC; 76775-TC; 78452-TC; 80048; 80053; 80061; 81003; 82550; 82553; 82962; 83036; 83735; 83880; 84100; 84443; 84484; 85025; 85027; 87086; 87186; 93005; 93010; 93017; 93225; 93226; 93306-TC; 93308; 97116-GP; 97162-GP; 99285-25; A9502; C9803-CS; J2785; U0003; U0005

== ENCOUNTER 2023-01-02 19:34 | Inpatient (IN) | payer OTHER ==
[2023-01-02 21:35] LABS: ARTERIAL BLD GAS O2 SATURATION 99.2 % (95-98); ARTERIAL BLOOD GAS PO2 160.9 mmHg (80-100); ARTERIAL BLOOD GAS pH 7.491 (7.350-7.450); BASO % 0.3 % (0-2.0); EOS % 0.2 % (0-4.5); HEMATOCRIT 33.6 % (35.4-49); HEMOGLOBIN 11.1 GM/dL (11.7-16.9); LYMPH % 9.4 % (8-40); MCH 30.6 pg (25.7-33.7); MCHC 33.2 g/dl (32.0-35.9); MEAN CELL VOLUME 92.4 fl (80-96); MEAN PLT VOLUME 7.4 fl (7.5-11.1); MONO % 9.4 % (3.8-10.2); NEUT % 80.7 % (42.8-82.8); PLATELET COUNT 277 10^3/uL (134-434); RBC 3.63 M/mm3 (4.00-5.60); RDW 17.5 % (11.9-15.9); WHITE BLOOD COUNT 11.5 K/mm3 (4.0-10.0)
[2023-01-02 21:50] LABS: INR 1.62 (0.83-1.09); PROTHROMBIN TIME (PATIENT) 18.7 SEC (9.7-13.0)
[2023-01-02 21:55] LABS: POTASSIUM 4.8 mmol/L (3.5-5.1)
[2023-01-02 21:55] LABS: URINE APPEARANCE TURBID; URINE BILIRUBIN NEGATIVE (NEGATIVE); URINE COLOR DK YELLOW; URINE GLUCOSE (UA) NEGATIVE (NEGATIVE); URINE KETONE 1+ (NEGATIVE); URINE LEUK ESTERASE 2+ (NEGATIVE); URINE NITRITE NEGATIVE (NEGATIVE); URINE PROTEIN 2+ (NEGATIVE)
[2023-01-02 21:58] LABS: ALBUMIN 1.9 g/dl (3.4-5.0); BLOOD UREA NITROGEN 55.7 mg/dL (7-18); CALCIUM 8.5 mg/dL (8.5-10.1); MAGNESIUM 2.1 mg/dL (1.8-2.4)
[2023-01-02 22:01] LABS: CREATININE 1.6 mg/dL (0.55-1.3); PHOSPHOROUS 3.6 mg/dL (2.5-4.9)
[2023-01-02 22:02] LABS: TOT PROT 5.2 g/dl (6.4-8.2)
[2023-01-02 22:03] LABS: BILIRUBIN,TOTAL 0.4 mg/dL (0.2-1)
[2023-01-02 22:05] LABS: URINE BACTERIA 3+ /uL (0-1359); URINE WBC 20 /uL (0-25.8)
[2023-01-02 22:06] LABS: N-TERMINAL BNP 295.1 pg/ml (5-450)
[2023-01-02 22:11] LABS: LACTIC ACID 2.9 mmol/L (0.4-2.0)
[2023-01-03] MEDS ORDERED: SODIUM CHLORIDE 0.9% 500 ML INFUS.BAG IV ONE (01:03)
[2023-01-03] MEDS ORDERED: PANTOPRAZOLE SODIUM 40 MG VIAL IVPUSH ONE ×3 (02:21→18:00)
[2023-01-03 02:27] LABS: LACTIC ACID 2.2 mmol/L (0.4-2.0)
[2023-01-03] MEDS ORDERED: PANTOPRAZOLE SODIUM 40 MG/100 ML BAG IVPB ONE ×2 (03:03→09:55)
[2023-01-03] MEDS ORDERED: SODIUM CHLORIDE 500 ML IV STA (04:32)
[2023-01-03] MEDS ORDERED: MEROPENEM 1 GM in DEXTROSE 5%-WATER 100 ML IVPB SCH ×2 (05:15→06:45)
[2023-01-03] MEDS ORDERED: LACTATED RINGERS SOLUTION 1,000 ML/1,000 ML INFUS.BAG IV SCH (05:30)
[2023-01-03 05:37] LABS: BASO % 0.5 % (0-2.0); EOS % 1.4 % (0-4.5); HEMATOCRIT 35.8 % (35.4-49); HEMOGLOBIN 11.6 GM/dL (11.7-16.9); LYMPH % 12.5 % (8-40); MCH 30.3 pg (25.7-33.7); MCHC 32.3 g/dl (32.0-35.9); MEAN CELL VOLUME 93.9 fl (80-96); MONO % 10.2 % (3.8-10.2); NEUT % 75.4 % (42.8-82.8); PLATELET COUNT 256 10^3/uL (134-434); RBC 3.81 M/mm3 (4.00-5.60); RDW 17.7 % (11.9-15.9); WHITE BLOOD COUNT 10.8 K/mm3 (4.0-10.0)
[2023-01-03] MEDS ORDERED: MEROPENEM 1 GM VIAL (RESTRICTED TO ID) IVPB ONE (06:55)
[2023-01-03] MEDS ORDERED: VANCOMYCIN 1 GM/200 ML PREMIX BAG (RESTRICTED TO ID ONLY) IVPB SCH (07:00)
[2023-01-03 07:17] LABS: HEMATOCRIT 35.9 % (35.4-49); HEMOGLOBIN 11.9 GM/dL (11.7-16.9); MCH 30.8 pg (25.7-33.7); MCHC 33.2 g/dl (32.0-35.9); MEAN CELL VOLUME 92.7 fl (80-96); MEAN PLT VOLUME 7.5 fl (7.5-11.1); PLATELET COUNT 267 10^3/uL (134-434); RBC 3.87 M/mm3 (4.00-5.60); RDW 17.6 % (11.9-15.9); WHITE BLOOD COUNT 9.2 K/mm3 (4.0-10.0)
[2023-01-03 07:21] LABS: POTASSIUM 4.9 mmol/L (3.5-5.1)
[2023-01-03 07:27] LABS: BLOOD UREA NITROGEN 53.9 mg/dL (7-18); CALCIUM 8.3 mg/dL (8.5-10.1)
[2023-01-03 07:30] LABS: CREATININE 1.4 mg/dL (0.55-1.3)
[2023-01-03 07:31] LABS: BILIRUBIN,TOTAL 0.6 mg/dL (0.2-1); TOT PROT 5.2 g/dl (6.4-8.2)
[2023-01-03] MEDS: INSULIN SLIDING SCALE (NOVOLOG) 1 VIAL SQ SCH ×4 (08:04→21:47)
[2023-01-03] MEDS ORDERED: VANCOMYCIN/WATER FOR INJ (PEG) 1,000 MG/200 ML BAG IVPB ONE ×2 (08:10→08:15)
[2023-01-03] MEDS ORDERED: DEXTROSE 5%-NORMAL SALINE 1,000 ML IV SCH (09:45)
[2023-01-03] MEDS ORDERED: PANTOPRAZOLE SODIUM 40 MG VIAL IVPUSH SCH ×2 (10:00)
[2023-01-03] MEDS ORDERED: OCTREOTIDE ACETATE 50 MCG/1 ML - 1 ML VIAL IVPUSH ONE ×2 (14:00→18:00)
[2023-01-03] MEDS ORDERED: OCTREOTIDE ACETATE 200 MCG, OCTREOTIDE ACETATE 1,000 MCG in DEXTROSE 5%-WATER - 496 ML IVPB SCH (14:45)
[2023-01-03] MEDS ORDERED: DEXTROSE 5%-LACTATED RINGERS 1,000 ML IV SCH (15:15)
[2023-01-03 15:50] LABS: BF WBC & OTHER NUCLEATED CELLS 56 /mm3
[2023-01-03 15:51] LABS: BODY FLUID MESOTHELIAL 3 %; BODY FLUID MONOCYTE 50 %
[2023-01-03] MEDS: PANTOPRAZOLE SODIUM 160 MG in SODIUM CHLORIDE 290 ML IVPB SCH (18:26)
[2023-01-03 21:56] LABS: INR 1.24 (0.83-1.09); PROTHROMBIN TIME (PATIENT) 14.3 SEC (9.7-13.0)
[2023-01-03] MEDS: ALBUMIN HUMAN 25% 12.5 GM/50 ML VIAL IV SCH ×2 (23:04)
[2023-01-03] MEDS: CEFEPIME 1 GM in DEXTROSE 5%-WATER 100 ML IVPB SCH (23:20)
[2023-01-04] MEDS ORDERED: ALBUMIN HUMAN 25% 100 ML VIAL IV ONE (00:40)
[2023-01-04] MEDS: PANTOPRAZOLE SODIUM 160 MG in SODIUM CHLORIDE 290 ML IVPB SCH (01:25)
[2023-01-04] MEDS: INSULIN SLIDING SCALE (NOVOLOG) 1 VIAL SQ SCH ×4 (06:09→22:19)
[2023-01-04] MEDS ORDERED: MEROPENEM 1 GM in DEXTROSE 5%-WATER 100 ML IVPB SCH (07:00)
[2023-01-04] MEDS ORDERED: VANCOMYCIN 1 GM/200 ML PREMIX BAG (RESTRICTED TO ID ONLY) IVPB SCH (07:00)
[2023-01-04] MEDS ORDERED: PANTOPRAZOLE SODIUM 160 MG in SODIUM CHLORIDE 290 ML IVPB SCH (08:17)
[2023-01-04] MEDS ORDERED: SPIRONOLACTONE 25 MG TABLET PO SCH (10:00)
[2023-01-04] MEDS: CEFEPIME 1 GM in DEXTROSE 5%-WATER 100 ML IVPB SCH (11:23)
[2023-01-04] MEDS: PANTOPRAZOLE 40 MG TABLET PO SCH ×2 (11:24→22:17)
[2023-01-04 13:11] LABS: BASO % 0.2 % (0-2.0); EOS % 2.3 % (0-4.5); HEMATOCRIT 34.8 % (35.4-49); HEMOGLOBIN 11.5 GM/dL (11.7-16.9); LYMPH % 14.1 % (8-40); MCH 30.9 pg (25.7-33.7); MEAN CELL VOLUME 93.6 fl (80-96); MEAN PLT VOLUME 6.9 fl (7.5-11.1); MONO % 11.3 % (3.8-10.2); NEUT % 72.1 % (42.8-82.8); PLATELET COUNT 256 10^3/uL (134-434); RBC 3.72 M/mm3 (4.00-5.60); RDW 17.7 % (11.9-15.9); WHITE BLOOD COUNT 7.6 K/mm3 (4.0-10.0)
[2023-01-04 13:18] LABS: INR 1.23 (0.83-1.09); PROTHROMBIN TIME (PATIENT) 14.2 SEC (9.7-13.0)
[2023-01-04 13:43] LABS: POTASSIUM 4.4 mmol/L (3.5-5.1)
[2023-01-04] MEDS ORDERED: DEXTROSE 5%-WATER - 1,000 ML IV SCH (13:45)
[2023-01-04 13:48] LABS: CALCIUM 8.3 mg/dL (8.5-10.1)
[2023-01-04 13:49] LABS: ALBUMIN 2.2 g/dl (3.4-5.0); BLOOD UREA NITROGEN 39.7 mg/dL (7-18)
[2023-01-04 13:50] LABS: PHOSPHOROUS 3.1 mg/dL (2.5-4.9)
[2023-01-04 13:51] LABS: CREATININE 1.1 mg/dL (0.55-1.3)
[2023-01-04 13:53] LABS: TOT PROT 5.3 g/dl (6.4-8.2)
[2023-01-04 14:12] LABS: HEPATITIS B SURFACE AG MATERN NON-REACTIVE (NONREACTIVE)
[2023-01-05] MEDS: INSULIN SLIDING SCALE (NOVOLOG) 1 VIAL SQ SCH ×4 (06:04→21:21)
[2023-01-05 06:40] LABS: BASO % 0.6 % (0-2.0); HEMATOCRIT 33.1 % (35.4-49); HEMOGLOBIN 10.8 GM/dL (11.7-16.9); LYMPH % 15.3 % (8-40); MCH 30.8 pg (25.7-33.7); MCHC 32.5 g/dl (32.0-35.9); MEAN CELL VOLUME 94.7 fl (80-96); MEAN PLT VOLUME 7.3 fl (7.5-11.1); NEUT % 69.1 % (42.8-82.8); PLATELET COUNT 261 10^3/uL (134-434); RDW 17.6 % (11.9-15.9); WHITE BLOOD COUNT 6.8 K/mm3 (4.0-10.0)
[2023-01-05 06:59] LABS: POTASSIUM 4.5 mmol/L (3.5-5.1)
[2023-01-05 07:04] LABS: BLOOD UREA NITROGEN 34.3 mg/dL (7-18); MAGNESIUM 1.9 mg/dL (1.8-2.4)
[2023-01-05 07:07] LABS: PHOSPHOROUS 2.4 mg/dL (2.5-4.9)
[2023-01-05 07:09] LABS: BILIRUBIN,TOTAL 1.1 mg/dL (0.2-1)
[2023-01-05] MEDS: PANTOPRAZOLE 40 MG TABLET PO SCH ×2 (09:35→21:18)
[2023-01-05 16:07] LABS: BODY FLUID ALBUMIN 1.4 g/dL (Not Estab.)
[2023-01-06] MEDS: INSULIN SLIDING SCALE (NOVOLOG) 1 VIAL SQ SCH ×4 (06:05→21:28)
[2023-01-06 08:02] LABS: BASO % 0.4 % (0-2.0); EOS % 4.1 % (0-4.5); HEMATOCRIT 34.4 % (35.4-49); HEMOGLOBIN 11.3 GM/dL (11.7-16.9); LYMPH % 17.8 % (8-40); MCHC 32.8 g/dl (32.0-35.9); MEAN CELL VOLUME 94.6 fl (80-96); MEAN PLT VOLUME 7.5 fl (7.5-11.1); MONO % 11.3 % (3.8-10.2); NEUT % 66.4 % (42.8-82.8); PLATELET COUNT 255 10^3/uL (134-434); POTASSIUM 4.4 mmol/L (3.5-5.1); RBC 3.64 M/mm3 (4.00-5.60); RDW 17.6 % (11.9-15.9); WHITE BLOOD COUNT 6.9 K/mm3 (4.0-10.0)
[2023-01-06 08:08] LABS: BLOOD UREA NITROGEN 27.4 mg/dL (7-18); MAGNESIUM 1.8 mg/dL (1.8-2.4)
[2023-01-06 08:09] LABS: ALBUMIN 1.9 g/dl (3.4-5.0)
[2023-01-06 08:12] LABS: CREATININE 0.8 mg/dL (0.55-1.3)
[2023-01-06 08:13] LABS: BILIRUBIN,TOTAL 0.8 mg/dL (0.2-1); TOT PROT 4.9 g/dl (6.4-8.2)
[2023-01-06 08:42] LABS: CALCIUM 7.8 mg/dL (8.5-10.1)
[2023-01-06] MEDS: PANTOPRAZOLE 40 MG TABLET PO SCH ×2 (09:34→21:21)
[2023-01-06 17:22] VITALS: BMI 22.6
[2023-01-06] MEDS: NAPH,MB-DB/K PH,MBDB POWDER PACKET PO SCH (21:21)
[2023-01-07] MEDS: INSULIN SLIDING SCALE (NOVOLOG) 1 VIAL SQ SCH ×4 (06:04→21:43)
[2023-01-07 07:43] LABS: HEMATOCRIT 37.4 % (35.4-49); HEMOGLOBIN 12.1 GM/dL (11.7-16.9); MCH 30.8 pg (25.7-33.7); MCHC 32.3 g/dl (32.0-35.9); MEAN CELL VOLUME 95.4 fl (80-96); MEAN PLT VOLUME 7.5 fl (7.5-11.1); PLATELET COUNT 275 10^3/uL (134-434); RBC 3.91 M/mm3 (4.00-5.60); RDW 17.5 % (11.9-15.9); WHITE BLOOD COUNT 8.5 K/mm3 (4.0-10.0)
[2023-01-07 08:02] LABS: POTASSIUM 4.6 mmol/L (3.5-5.1)
[2023-01-07 08:05] LABS: BLOOD UREA NITROGEN 26.3 mg/dL (7-18); CALCIUM 7.7 mg/dL (8.5-10.1); MAGNESIUM 1.9 mg/dL (1.8-2.4)
[2023-01-07 08:08] LABS: CREATININE 0.9 mg/dL (0.55-1.3)
[2023-01-07 08:10] LABS: BILIRUBIN,TOTAL 0.7 mg/dL (0.2-1)
[2023-01-07] MEDS: PANTOPRAZOLE 40 MG TABLET PO SCH ×2 (09:11→21:41)
[2023-01-07] MEDS: NAPH,MB-DB/K PH,MBDB POWDER PACKET PO SCH ×2 (09:11→21:41)
[2023-01-07] MEDS ORDERED: LACTATED RINGERS SOLUTION 1000 ML INFUS.BAG IV ONE (18:24)
[2023-01-07] MEDS ORDERED: METOPROLOL TARTRATE 25 MG TABLET (FP) PO ONE (18:25)
[2023-01-08] MEDS: INSULIN SLIDING SCALE (NOVOLOG) 1 VIAL SQ SCH ×4 (06:24→22:14)
[2023-01-08 07:14] LABS: BASO % 0.5 % (0-2.0); EOS % 3.6 % (0-4.5); HEMATOCRIT 36.4 % (35.4-49); HEMOGLOBIN 12.3 GM/dL (11.7-16.9); LYMPH % 19.2 % (8-40); MCH 31.2 pg (25.7-33.7); MCHC 33.7 g/dl (32.0-35.9); MEAN CELL VOLUME 92.6 fl (80-96); MEAN PLT VOLUME 7.3 fl (7.5-11.1); MONO % 10.6 % (3.8-10.2); NEUT % 66.1 % (42.8-82.8); PLATELET COUNT 256 10^3/uL (134-434); RBC 3.93 M/mm3 (4.00-5.60); RDW 17.5 % (11.9-15.9); WHITE BLOOD COUNT 8.1 K/mm3 (4.0-10.0)
[2023-01-08 07:25] LABS: POTASSIUM 4.5 mmol/L (3.5-5.1)
[2023-01-08 07:31] LABS: CALCIUM 7.4 mg/dL (8.5-10.1)
[2023-01-08 07:32] LABS: ALBUMIN 1.9 g/dl (3.4-5.0); MAGNESIUM 1.8 mg/dL (1.8-2.4)
[2023-01-08 07:33] LABS: CREATININE 0.8 mg/dL (0.55-1.3)
[2023-01-08 07:34] LABS: BILIRUBIN,TOTAL 0.7 mg/dL (0.2-1)
[2023-01-08 07:35] LABS: PHOSPHOROUS 2.1 mg/dL (2.5-4.9)
[2023-01-08] MEDS: APIXABAN 2.5 MG TABLET PO SCH ×2 (10:03→22:07)
[2023-01-08] MEDS: PANTOPRAZOLE 40 MG TABLET PO SCH ×2 (10:03→22:07)
[2023-01-08] MEDS: NAPH,MB-DB/K PH,MBDB POWDER PACKET PO SCH ×2 (10:03→22:07)
[2023-01-09] MEDS: INSULIN SLIDING SCALE (NOVOLOG) 1 VIAL SQ SCH ×4 (06:24→21:23)
[2023-01-09 08:00] LABS: BASO % 0.5 % (0-2.0); EOS % 3.2 % (0-4.5); HEMATOCRIT 36.1 % (35.4-49); HEMOGLOBIN 11.7 GM/dL (11.7-16.9); LYMPH % 18.8 % (8-40); MCH 30.8 pg (25.7-33.7); MCHC 32.4 g/dl (32.0-35.9); MEAN CELL VOLUME 94.9 fl (80-96); MEAN PLT VOLUME 7.5 fl (7.5-11.1); MONO % 9.7 % (3.8-10.2); NEUT % 67.8 % (42.8-82.8); PLATELET COUNT 271 10^3/uL (134-434); RBC 3.81 M/mm3 (4.00-5.60); RDW 17.8 % (11.9-15.9); WHITE BLOOD COUNT 7.3 K/mm3 (4.0-10.0)
[2023-01-09 08:29] LABS: POTASSIUM 4.3 mmol/L (3.5-5.1)
[2023-01-09 08:33] LABS: MAGNESIUM 1.9 mg/dL (1.8-2.4)
[2023-01-09 08:34] LABS: CALCIUM 7.7 mg/dL (8.5-10.1)
[2023-01-09 08:35] LABS: ALBUMIN 1.9 g/dl (3.4-5.0); BLOOD UREA NITROGEN 21.3 mg/dL (7-18)
[2023-01-09 08:36] LABS: CREATININE 0.8 mg/dL (0.55-1.3)
[2023-01-09 08:39] LABS: BILIRUBIN,TOTAL 0.4 mg/dL (0.2-1); TOT PROT 4.8 g/dl (6.4-8.2)
[2023-01-09] MEDS: PANTOPRAZOLE 40 MG TABLET PO SCH ×2 (09:27→21:23)
[2023-01-09] MEDS: FUROSEMIDE 20 MG TABLET (FP) PO SCH (09:27)
[2023-01-09] MEDS: SPIRONOLACTONE 25 MG TABLET PO SCH (09:27)
[2023-01-09] MEDS: NAPH,MB-DB/K PH,MBDB POWDER PACKET PO SCH (09:27)
[2023-01-09] MEDS: ENOXAPARIN NA (PORCINE) 80 MG/0.8 ML DISP.SYRIN SQ SCH ×2 (09:28→21:23)
[2023-01-09] MEDS ORDERED: NAPH,MB-DB/K PH,MBDB POWDER PACKET PO SCH (22:00)
[2023-01-10] MEDS: INSULIN SLIDING SCALE (NOVOLOG) 1 VIAL SQ SCH ×4 (06:00→22:20)
[2023-01-10 07:56] LABS: BASO % 0.8 % (0-2.0); EOS % 2.4 % (0-4.5); HEMATOCRIT 36.6 % (35.4-49); LYMPH % 19.7 % (8-40); MCH 31.1 pg (25.7-33.7); MCHC 32.7 g/dl (32.0-35.9); MEAN CELL VOLUME 94.9 fl (80-96); MEAN PLT VOLUME 7.8 fl (7.5-11.1); MONO % 9.5 % (3.8-10.2); NEUT % 67.6 % (42.8-82.8); PLATELET COUNT 265 10^3/uL (134-434); RBC 3.85 M/mm3 (4.00-5.60); WHITE BLOOD COUNT 7.4 K/mm3 (4.0-10.0)
[2023-01-10 08:07] LABS: CARCINOEMBRYONIC ANTIGEN 1.1 ng/mL (0.0-4.7)
[2023-01-10 08:14] LABS: POTASSIUM 4.5 mmol/L (3.5-5.1)
[2023-01-10 08:23] LABS: ALBUMIN 1.9 g/dl (3.4-5.0); BLOOD UREA NITROGEN 20.8 mg/dL (7-18); CALCIUM 7.7 mg/dL (8.5-10.1); MAGNESIUM 1.9 mg/dL (1.8-2.4)
[2023-01-10 08:25] LABS: CREATININE 0.9 mg/dL (0.55-1.3); PHOSPHOROUS 2.2 mg/dL (2.5-4.9)
[2023-01-10 08:27] LABS: TOT PROT 4.9 g/dl (6.4-8.2)
[2023-01-10 08:32] LABS: BILIRUBIN,TOTAL 0.6 mg/dL (0.2-1)
[2023-01-10] MEDS: FUROSEMIDE 20 MG TABLET (FP) PO SCH (10:17)
[2023-01-10] MEDS: SPIRONOLACTONE 25 MG TABLET PO SCH (10:17)
[2023-01-10] MEDS: ENOXAPARIN NA (PORCINE) 80 MG/0.8 ML DISP.SYRIN SQ SCH (10:18)
[2023-01-10] MEDS: PANTOPRAZOLE 40 MG TABLET PO SCH ×2 (10:18→22:28)
[2023-01-10] MEDS ORDERED: METOPROLOL TARTRATE 25 MG TABLET (FP) PO SCH (11:45)
[2023-01-10] MEDS ORDERED: NAPH,MB-DB/K PH,MBDB POWDER PACKET PO ONE (14:15)
[2023-01-10 22:08] LABS: GLIADIN ANTIBODY IGA 7 units (0-19); GLIADIN ANTIBODY IGG 3 units (0-19); TRANSGLUTAMINASE IGG < 2 U/mL (0-5)
[2023-01-10] MEDS: METOPROLOL TARTRATE 25 MG TABLET (FP) PO SCH (22:28)
[2023-01-11] MEDS: INSULIN SLIDING SCALE (NOVOLOG) 1 VIAL SQ SCH ×4 (06:02→21:04)
[2023-01-11 08:56] LABS: BASO % 0.6 % (0-2.0); EOS % 1.9 % (0-4.5); HEMOGLOBIN 12.1 GM/dL (11.7-16.9); LYMPH % 18.1 % (8-40); MCH 30.5 pg (25.7-33.7); MEAN CELL VOLUME 95.6 fl (80-96); MEAN PLT VOLUME 7.5 fl (7.5-11.1); MONO % 9.4 % (3.8-10.2); PLATELET COUNT 272 10^3/uL (134-434); RBC 3.98 M/mm3 (4.00-5.60); RDW 18.1 % (11.9-15.9)
[2023-01-11 09:10] LABS: POTASSIUM 4.4 mmol/L (3.5-5.1)
[2023-01-11 09:12] LABS: CALCIUM 7.9 mg/dL (8.5-10.1)
[2023-01-11 09:13] LABS: ALBUMIN 1.9 g/dl (3.4-5.0); BLOOD UREA NITROGEN 22.2 mg/dL (7-18); MAGNESIUM 1.9 mg/dL (1.8-2.4)
[2023-01-11 09:15] LABS: CREATININE 0.9 mg/dL (0.55-1.3); PHOSPHOROUS 2.6 mg/dL (2.5-4.9)
[2023-01-11 09:17] LABS: BILIRUBIN,TOTAL 0.5 mg/dL (0.2-1); TOT PROT 5.1 g/dl (6.4-8.2)
[2023-01-11] MEDS: FUROSEMIDE 20 MG TABLET (FP) PO SCH (09:59)
[2023-01-11] MEDS: METOPROLOL TARTRATE 25 MG TABLET (FP) PO SCH (09:59)
[2023-01-11] MEDS: SPIRONOLACTONE 25 MG TABLET PO SCH (10:00)
[2023-01-11] MEDS: PANTOPRAZOLE 40 MG TABLET PO SCH ×2 (10:01→21:01)
[2023-01-11] MEDS: PINDOLOL 5 MG TABLET PO SCH (21:02)
[2023-01-12 08:10] LABS: POTASSIUM 4.4 mmol/L (3.5-5.1)
[2023-01-12 08:12] LABS: CALCIUM 7.9 mg/dL (8.5-10.1); MAGNESIUM 1.9 mg/dL (1.8-2.4)
[2023-01-12 08:13] LABS: BLOOD UREA NITROGEN 22.8 mg/dL (7-18)
[2023-01-12 08:15] LABS: PHOSPHOROUS 3.5 mg/dL (2.5-4.9)
[2023-01-12] MEDS: INSULIN SLIDING SCALE (NOVOLOG) 1 VIAL SQ SCH ×4 (08:15→22:35)
[2023-01-12 08:17] LABS: BILIRUBIN,TOTAL 0.5 mg/dL (0.2-1); TOT PROT 5.3 g/dl (6.4-8.2)
[2023-01-12] MEDS: SPIRONOLACTONE 25 MG TABLET PO SCH (10:07)
[2023-01-12] MEDS: PANTOPRAZOLE 40 MG TABLET PO SCH ×2 (10:07→21:59)
[2023-01-12] MEDS: PINDOLOL 5 MG TABLET PO SCH ×2 (10:09→21:59)
[2023-01-12] MEDS: FUROSEMIDE 20 MG TABLET (FP) PO SCH (10:09)
[2023-01-12 12:14] LABS: BASO % 0.4 % (0-2.0); EOS % 0.8 % (0-4.5); HEMATOCRIT 38.3 % (35.4-49); HEMOGLOBIN 12.2 GM/dL (11.7-16.9); MCH 30.5 pg (25.7-33.7); MCHC 31.8 g/dl (32.0-35.9); MEAN PLT VOLUME 7.5 fl (7.5-11.1); MONO % 9.5 % (3.8-10.2); NEUT % 76.3 % (42.8-82.8); PLATELET COUNT 276 10^3/uL (134-434); RBC 3.99 M/mm3 (4.00-5.60); RDW 18.3 % (11.9-15.9); WHITE BLOOD COUNT 8.1 K/mm3 (4.0-10.0)
[2023-01-12] MEDS: ENOXAPARIN NA (PORCINE) 80 MG/0.8 ML DISP.SYRIN SQ SCH (21:59)
[2023-01-13] MEDS: INSULIN SLIDING SCALE (NOVOLOG) 1 VIAL SQ SCH ×4 (06:45→21:28)
[2023-01-13 09:25] LABS: BASO % 0.5 % (0-2.0); EOS % 0.8 % (0-4.5); HEMATOCRIT 38.9 % (35.4-49); HEMOGLOBIN 12.5 GM/dL (11.7-16.9); LYMPH % 11.7 % (8-40); MCH 30.8 pg (25.7-33.7); MCHC 32.3 g/dl (32.0-35.9); MEAN CELL VOLUME 95.4 fl (80-96); MEAN PLT VOLUME 7.4 fl (7.5-11.1); MONO % 7.9 % (3.8-10.2); NEUT % 79.1 % (42.8-82.8); PLATELET COUNT 290 10^3/uL (134-434); RBC 4.07 M/mm3 (4.00-5.60); RDW 18.1 % (11.9-15.9); WHITE BLOOD COUNT 11.2 K/mm3 (4.0-10.0)
[2023-01-13] MEDS: SPIRONOLACTONE 25 MG TABLET PO SCH (09:48)
[2023-01-13] MEDS: PANTOPRAZOLE 40 MG TABLET PO SCH ×2 (09:48→21:19)
[2023-01-13] MEDS: PINDOLOL 5 MG TABLET PO SCH ×2 (09:48→21:19)
[2023-01-13] MEDS: FUROSEMIDE 20 MG TABLET (FP) PO SCH (09:48)
[2023-01-13] MEDS: ENOXAPARIN NA (PORCINE) 80 MG/0.8 ML DISP.SYRIN SQ SCH (09:49)
[2023-01-13 09:58] LABS: POTASSIUM 5.6 mmol/L (3.5-5.1)
[2023-01-13 09:59] LABS: CALCIUM 8.2 mg/dL (8.5-10.1)
[2023-01-13 10:01] LABS: ALBUMIN 1.9 g/dl (3.4-5.0); BLOOD UREA NITROGEN 17.8 mg/dL (7-18); MAGNESIUM 1.9 mg/dL (1.8-2.4)
[2023-01-13 10:04] LABS: CREATININE 0.9 mg/dL (0.55-1.3)
[2023-01-13 10:05] LABS: TOT PROT 5.2 g/dl (6.4-8.2)
[2023-01-13] MEDS ORDERED: ALBUMIN HUMAN 25% 12.5 GM/50 ML VIAL IV ONE (15:30)
[2023-01-13] MEDS ORDERED: SPIRONOLACTONE 25 MG TABLET PO SCH (18:34)
[2023-01-14] MEDS: INSULIN SLIDING SCALE (NOVOLOG) 1 VIAL SQ SCH ×4 (06:39→23:08)
[2023-01-14 09:21] LABS: BASO % 0.5 % (0-2.0); EOS % 1.8 % (0-4.5); HEMOGLOBIN 12.7 GM/dL (11.7-16.9); LYMPH % 13.1 % (8-40); MCHC 32.6 g/dl (32.0-35.9); MEAN CELL VOLUME 95.1 fl (80-96); MEAN PLT VOLUME 7.3 fl (7.5-11.1); MONO % 9.1 % (3.8-10.2); NEUT % 75.5 % (42.8-82.8); PLATELET COUNT 275 10^3/uL (134-434); RBC 4.11 M/mm3 (4.00-5.60); RDW 18.2 % (11.9-15.9); WHITE BLOOD COUNT 10.3 K/mm3 (4.0-10.0)
[2023-01-14 09:24] LABS: INR 1.07 (0.83-1.09); PROTHROMBIN TIME (PATIENT) 12.4 SEC (9.7-13.0)
[2023-01-14] MEDS: PANTOPRAZOLE 40 MG TABLET PO SCH ×2 (09:52→23:08)
[2023-01-14 09:53] LABS: POTASSIUM 4.6 mmol/L (3.5-5.1)
[2023-01-14] MEDS: SODIUM ZIRCONIUM CYCLOSILICATE (LOKELMA) 5 GM PACKET PO SCH (09:53)
[2023-01-14] MEDS: PINDOLOL 5 MG TABLET PO SCH ×2 (09:53→23:08)
[2023-01-14] MEDS ORDERED: SODIUM ZIRCONIUM CYCLOSILICATE (LOKELMA) 5 GM PACKET PO SCH (10:00)
[2023-01-14 10:04] LABS: ALBUMIN 1.9 g/dl (3.4-5.0); CALCIUM 8.2 mg/dL (8.5-10.1)
[2023-01-14 10:05] LABS: BLOOD UREA NITROGEN 16.5 mg/dL (7-18)
[2023-01-14 10:07] LABS: CREATININE 0.9 mg/dL (0.55-1.3); PHOSPHOROUS 3.1 mg/dL (2.5-4.9)
[2023-01-14 10:09] LABS: BILIRUBIN,TOTAL 0.8 mg/dL (0.2-1); TOT PROT 5.1 g/dl (6.4-8.2)
[2023-01-14] MEDS ORDERED: MIDAZOLAM HCL 2 MG/2 ML SINGLE DOSE VIAL ONE (11:35)
[2023-01-14] MEDS ORDERED: FENTANYL CITRATE/PF 50 MCG/ML VIAL ONE (11:36)
[2023-01-14] MEDS: SODIUM CHLORIDE 500 ML IV SCH (12:00)
[2023-01-14] MEDS ORDERED: FENTANYL CITRATE/PF 50 MCG/ML VIAL IVPUSH ONE (12:29)
[2023-01-14] MEDS ORDERED: MIDAZOLAM HCL 2 MG/2 ML SINGLE DOSE VIAL IVPUSH ONE (12:30)
[2023-01-15] MEDS: INSULIN SLIDING SCALE (NOVOLOG) 1 VIAL SQ SCH ×4 (06:25→22:09)
[2023-01-15] MEDS: PANTOPRAZOLE 40 MG TABLET PO SCH ×3 (09:09→22:07)
[2023-01-15] MEDS: APIXABAN 2.5 MG TABLET PO SCH ×3 (09:09→22:07)
[2023-01-15] MEDS: SODIUM ZIRCONIUM CYCLOSILICATE (LOKELMA) 5 GM PACKET PO SCH (09:10)
[2023-01-15 10:45] LABS: BASO % 0.4 % (0-2.0); EOS % 0.8 % (0-4.5); HEMATOCRIT 41.1 % (35.4-49); HEMOGLOBIN 13.3 GM/dL (11.7-16.9); LYMPH % 10.6 % (8-40); MCH 30.8 pg (25.7-33.7); MCHC 32.4 g/dl (32.0-35.9); MEAN CELL VOLUME 94.9 fl (80-96); MEAN PLT VOLUME 7.8 fl (7.5-11.1); MONO % 8.1 % (3.8-10.2); NEUT % 80.1 % (42.8-82.8); PLATELET COUNT 314 10^3/uL (134-434); RBC 4.32 M/mm3 (4.00-5.60)
[2023-01-15 10:52] LABS: INR 1.05 (0.83-1.09); PROTHROMBIN TIME (PATIENT) 12.2 SEC (9.7-13.0)
[2023-01-15 11:10] LABS: POTASSIUM 4.6 mmol/L (3.5-5.1)
[2023-01-15 11:27] LABS: CALCIUM 8.1 mg/dL (8.5-10.1)
[2023-01-15 11:29] LABS: MAGNESIUM 2.1 mg/dL (1.8-2.4)
[2023-01-15] MEDS: PINDOLOL 5 MG TABLET PO SCH ×2 (11:29→22:10)
[2023-01-15 11:31] LABS: CREATININE 0.9 mg/dL (0.55-1.3); PHOSPHOROUS 3.5 mg/dL (2.5-4.9)
[2023-01-15 11:33] LABS: BILIRUBIN,TOTAL 1.2 mg/dL (0.2-1); BLOOD UREA NITROGEN 20.3 mg/dL (7-18); TOT PROT 5.4 g/dl (6.4-8.2)
[2023-01-15] MEDS: SODIUM CHLORIDE 500 ML IV SCH (16:44)
[2023-01-16] MEDS: INSULIN SLIDING SCALE (NOVOLOG) 1 VIAL SQ SCH ×4 (06:15→22:00)
[2023-01-16 09:26] LABS: BASO % 0.3 % (0-2.0); EOS % 0.7 % (0-4.5); HEMATOCRIT 35.7 % (35.4-49); HEMOGLOBIN 11.8 GM/dL (11.7-16.9); LYMPH % 12.3 % (8-40); MCH 31.5 pg (25.7-33.7); MEAN CELL VOLUME 95.4 fl (80-96); MEAN PLT VOLUME 7.4 fl (7.5-11.1); MONO % 10.1 % (3.8-10.2); NEUT % 76.6 % (42.8-82.8); PLATELET COUNT 297 10^3/uL (134-434); RBC 3.74 M/mm3 (4.00-5.60); RDW 17.8 % (11.9-15.9); WHITE BLOOD COUNT 8.5 K/mm3 (4.0-10.0)
[2023-01-16 09:46] LABS: POTASSIUM 4.6 mmol/L (3.5-5.1)
[2023-01-16 09:50] LABS: ALBUMIN 1.8 g/dl (3.4-5.0)
[2023-01-16 09:52] LABS: BLOOD UREA NITROGEN 27.6 mg/dL (7-18); MAGNESIUM 2.1 mg/dL (1.8-2.4)
[2023-01-16 09:56] LABS: TOT PROT 4.8 g/dl (6.4-8.2)
[2023-01-16] MEDS: APIXABAN 2.5 MG TABLET PO SCH ×2 (10:49→21:59)
[2023-01-16] MEDS: PANTOPRAZOLE 40 MG TABLET PO SCH ×2 (10:49→21:59)
[2023-01-16] MEDS: SODIUM ZIRCONIUM CYCLOSILICATE (LOKELMA) 5 GM PACKET PO SCH (10:49)
[2023-01-16] MEDS: PINDOLOL 5 MG TABLET PO SCH ×2 (15:31→21:59)
[2023-01-17] MEDS: INSULIN SLIDING SCALE (NOVOLOG) 1 VIAL SQ SCH ×4 (06:16→21:36)
[2023-01-17 08:31] LABS: BASO % 0.6 % (0-2.0); EOS % 1.6 % (0-4.5); HEMATOCRIT 33.5 % (35.4-49); HEMOGLOBIN 11.2 GM/dL (11.7-16.9); LYMPH % 14.9 % (8-40); MCH 31.8 pg (25.7-33.7); MCHC 33.3 g/dl (32.0-35.9); MEAN CELL VOLUME 95.5 fl (80-96); NEUT % 71.9 % (42.8-82.8); PLATELET COUNT 277 10^3/uL (134-434); RBC 3.51 M/mm3 (4.00-5.60); RDW 18.2 % (11.9-15.9); WHITE BLOOD COUNT 7.2 K/mm3 (4.0-10.0)
[2023-01-17 08:54] LABS: POTASSIUM 4.8 mmol/L (3.5-5.1)
[2023-01-17 09:16] LABS: CALCIUM 7.9 mg/dL (8.5-10.1)
[2023-01-17 09:18] LABS: ALBUMIN 1.8 g/dl (3.4-5.0)
[2023-01-17 09:19] LABS: BLOOD UREA NITROGEN 28.2 mg/dL (7-18); MAGNESIUM 2.1 mg/dL (1.8-2.4)
[2023-01-17 09:22] LABS: CREATININE 0.9 mg/dL (0.55-1.3)
[2023-01-17 09:23] LABS: BILIRUBIN,TOTAL 0.7 mg/dL (0.2-1); TOT PROT 4.8 g/dl (6.4-8.2)
[2023-01-17] MEDS: SODIUM ZIRCONIUM CYCLOSILICATE (LOKELMA) 5 GM PACKET PO SCH ×2 (09:46→09:56)
[2023-01-17] MEDS: APIXABAN 2.5 MG TABLET PO SCH ×2 (09:47→21:35)
[2023-01-17] MEDS: PINDOLOL 5 MG TABLET PO SCH ×3 (09:47→21:35)
[2023-01-17] MEDS: PANTOPRAZOLE 40 MG TABLET PO SCH ×2 (09:48→21:35)
[2023-01-18] MEDS: INSULIN SLIDING SCALE (NOVOLOG) 1 VIAL SQ SCH ×3 (08:31→16:48)
[2023-01-18] MEDS: APIXABAN 2.5 MG TABLET PO SCH ×2 (09:04→21:20)
[2023-01-18] MEDS: PANTOPRAZOLE 40 MG TABLET PO SCH ×2 (09:04→21:20)
[2023-01-18] MEDS: SODIUM ZIRCONIUM CYCLOSILICATE (LOKELMA) 5 GM PACKET PO SCH (09:05)
[2023-01-18] MEDS: PINDOLOL 5 MG TABLET PO SCH ×2 (09:05→21:21)
[2023-01-18 15:54] LABS: BASO % 0.7 % (0-2.0); EOS % 3.2 % (0-4.5); HEMATOCRIT 33.7 % (35.4-49); HEMOGLOBIN 11.1 GM/dL (11.7-16.9); LYMPH % 16.7 % (8-40); MCH 31.6 pg (25.7-33.7); MCHC 32.9 g/dl (32.0-35.9); MEAN CELL VOLUME 96.1 fl (80-96); MEAN PLT VOLUME 7.3 fl (7.5-11.1); MONO % 13.3 % (3.8-10.2); NEUT % 66.1 % (42.8-82.8); PLATELET COUNT 288 10^3/uL (134-434); RDW 17.6 % (11.9-15.9); WHITE BLOOD COUNT 7.1 K/mm3 (4.0-10.0)
[2023-01-18 17:08] LABS: POTASSIUM 4.6 mmol/L (3.5-5.1)
[2023-01-18 17:14] LABS: ALBUMIN 1.7 g/dl (3.4-5.0); BLOOD UREA NITROGEN 22.4 mg/dL (7-18)
[2023-01-18 17:17] LABS: CREATININE 0.8 mg/dL (0.55-1.3)
[2023-01-18 17:18] LABS: TOT PROT 4.6 g/dl (6.4-8.2)
[2023-01-19] MEDS: INSULIN SLIDING SCALE (NOVOLOG) 1 VIAL SQ SCH ×5 (00:26→23:06)
[2023-01-19] MEDS ORDERED: INSULIN (NOVOLOG) ASPART 100 UNITS/ML 10ML VIAL ONE (00:55)
[2023-01-19 09:07] LABS: BASO % 0.6 % (0-2.0); EOS % 3.3 % (0-4.5); HEMATOCRIT 37.6 % (35.4-49); HEMOGLOBIN 12.7 GM/dL (11.7-16.9); LYMPH % 16.9 % (8-40); MCH 31.9 pg (25.7-33.7); MCHC 33.7 g/dl (32.0-35.9); MEAN CELL VOLUME 94.8 fl (80-96); MEAN PLT VOLUME 6.6 fl (7.5-11.1); NEUT % 67.2 % (42.8-82.8); PLATELET COUNT 295 10^3/uL (134-434); RBC 3.96 M/mm3 (4.00-5.60); RDW 17.9 % (11.9-15.9)
[2023-01-19 09:27] LABS: POTASSIUM 4.4 mmol/L (3.5-5.1)
[2023-01-19] MEDS: PANTOPRAZOLE 40 MG TABLET PO SCH ×2 (09:28→22:54)
[2023-01-19] MEDS: PINDOLOL 5 MG TABLET PO SCH ×2 (09:28→22:54)
[2023-01-19] MEDS: APIXABAN 2.5 MG TABLET PO SCH ×2 (09:28→22:54)
[2023-01-19] MEDS: SODIUM ZIRCONIUM CYCLOSILICATE (LOKELMA) 5 GM PACKET PO SCH (09:28)
[2023-01-19 09:31] LABS: BLOOD UREA NITROGEN 18.4 mg/dL (7-18)
[2023-01-19 09:33] LABS: ALBUMIN 1.9 g/dl (3.4-5.0); CALCIUM 8.2 mg/dL (8.5-10.1)
[2023-01-19 09:36] LABS: CREATININE 0.7 mg/dL (0.55-1.3)
[2023-01-19 09:38] LABS: BILIRUBIN,TOTAL 0.7 mg/dL (0.2-1); TOT PROT 5.2 g/dl (6.4-8.2)
[2023-01-20] MEDS: INSULIN SLIDING SCALE (NOVOLOG) 1 VIAL SQ SCH ×4 (06:35→22:10)
[2023-01-20] MEDS: SODIUM ZIRCONIUM CYCLOSILICATE (LOKELMA) 5 GM PACKET PO SCH (09:54)
[2023-01-20] MEDS: PANTOPRAZOLE 40 MG TABLET PO SCH ×2 (09:54→22:09)
[2023-01-20] MEDS: APIXABAN 2.5 MG TABLET PO SCH ×2 (09:54→22:09)
[2023-01-20] MEDS: PINDOLOL 5 MG TABLET PO SCH ×2 (09:54→22:11)
[2023-01-20 11:58] LABS: BASO % 0.6 % (0-2.0); EOS % 2.4 % (0-4.5); HEMATOCRIT 39.3 % (35.4-49); HEMOGLOBIN 12.7 GM/dL (11.7-16.9); LYMPH % 16.4 % (8-40); MCH 31.2 pg (25.7-33.7); MCHC 32.3 g/dl (32.0-35.9); MEAN CELL VOLUME 96.7 fl (80-96); MEAN PLT VOLUME 7.3 fl (7.5-11.1); MONO % 11.2 % (3.8-10.2); NEUT % 69.4 % (42.8-82.8); PLATELET COUNT 313 10^3/uL (134-434); RBC 4.06 M/mm3 (4.00-5.60); RDW 17.5 % (11.9-15.9); WHITE BLOOD COUNT 6.8 K/mm3 (4.0-10.0)
[2023-01-20 12:26] LABS: POTASSIUM 4.7 mmol/L (3.5-5.1)
[2023-01-20 12:27] LABS: ALBUMIN 1.9 g/dl (3.4-5.0); BLOOD UREA NITROGEN 19.1 mg/dL (7-18); CALCIUM 7.9 mg/dL (8.5-10.1)
[2023-01-20 12:30] LABS: CREATININE 0.7 mg/dL (0.55-1.3)
[2023-01-20 12:32] LABS: BILIRUBIN,TOTAL 0.4 mg/dL (0.2-1); TOT PROT 5.2 g/dl (6.4-8.2)
[2023-01-21] MEDS: INSULIN SLIDING SCALE (NOVOLOG) 1 VIAL SQ SCH ×4 (06:45→22:11)
[2023-01-21 09:34] LABS: BASO % 0.9 % (0-2.0); EOS % 2.5 % (0-4.5); HEMATOCRIT 40.1 % (35.4-49); HEMOGLOBIN 13.2 GM/dL (11.7-16.9); LYMPH % 16.2 % (8-40); MCH 31.9 pg (25.7-33.7); MEAN CELL VOLUME 96.9 fl (80-96); MEAN PLT VOLUME 7.2 fl (7.5-11.1); MONO % 11.9 % (3.8-10.2); NEUT % 68.5 % (42.8-82.8); PLATELET COUNT 341 10^3/uL (134-434); RBC 4.14 M/mm3 (4.00-5.60); RDW 17.5 % (11.9-15.9); WHITE BLOOD COUNT 7.7 K/mm3 (4.0-10.0)
[2023-01-21 09:47] LABS: POTASSIUM 4.3 mmol/L (3.5-5.1)
[2023-01-21 09:54] LABS: BLOOD UREA NITROGEN 17.9 mg/dL (7-18); CALCIUM 8.2 mg/dL (8.5-10.1)
[2023-01-21 09:57] LABS: CREATININE 0.7 mg/dL (0.55-1.3)
[2023-01-21 09:58] LABS: BILIRUBIN,TOTAL 0.5 mg/dL (0.2-1)
[2023-01-21 09:59] LABS: TOT PROT 5.6 g/dl (6.4-8.2)
[2023-01-21] MEDS: PANTOPRAZOLE 40 MG TABLET PO SCH ×2 (10:40→21:56)
[2023-01-21] MEDS: SODIUM ZIRCONIUM CYCLOSILICATE (LOKELMA) 5 GM PACKET PO SCH (10:41)
[2023-01-21] MEDS: APIXABAN 2.5 MG TABLET PO SCH ×2 (10:41→21:56)
[2023-01-21] MEDS: PINDOLOL 5 MG TABLET PO SCH ×2 (10:41→21:56)
[2023-01-21 14:29] VITALS: RESP 18
[2023-01-22] MEDS: INSULIN SLIDING SCALE (NOVOLOG) 1 VIAL SQ SCH ×4 (08:07→21:55)
[2023-01-22 10:17] LABS: BASO % 0.6 % (0-2.0); EOS % 1.5 % (0-4.5); HEMATOCRIT 38.9 % (35.4-49); HEMOGLOBIN 12.7 GM/dL (11.7-16.9); LYMPH % 15.2 % (8-40); MCH 31.5 pg (25.7-33.7); MCHC 32.5 g/dl (32.0-35.9); MEAN CELL VOLUME 96.9 fl (80-96); MEAN PLT VOLUME 7.2 fl (7.5-11.1); MONO % 11.8 % (3.8-10.2); NEUT % 70.9 % (42.8-82.8); PLATELET COUNT 326 10^3/uL (134-434); RBC 4.01 M/mm3 (4.00-5.60); RDW 17.3 % (11.9-15.9); WHITE BLOOD COUNT 7.8 K/mm3 (4.0-10.0)
[2023-01-22 10:30] LABS: POTASSIUM 4.4 mmol/L (3.5-5.1)
[2023-01-22 10:34] LABS: CALCIUM 7.6 mg/dL (8.5-10.1)
[2023-01-22] MEDS: PANTOPRAZOLE 40 MG TABLET PO SCH ×2 (10:34→21:50)
[2023-01-22] MEDS: APIXABAN 2.5 MG TABLET PO SCH ×2 (10:34→21:49)
[2023-01-22 10:35] LABS: ALBUMIN 1.8 g/dl (3.4-5.0); BLOOD UREA NITROGEN 17.9 mg/dL (7-18)
[2023-01-22] MEDS: SODIUM ZIRCONIUM CYCLOSILICATE (LOKELMA) 5 GM PACKET PO SCH (10:35)
[2023-01-22] MEDS: PINDOLOL 5 MG TABLET PO SCH ×2 (10:35→21:49)
[2023-01-22 10:38] LABS: CREATININE 0.7 mg/dL (0.55-1.3)
[2023-01-22 10:40] LABS: BILIRUBIN,TOTAL 0.9 mg/dL (0.2-1)
[2023-01-23] MEDS: INSULIN SLIDING SCALE (NOVOLOG) 1 VIAL SQ SCH ×3 (08:53→17:31)
[2023-01-23 08:54] LABS: BASO % 0.5 % (0-2.0); HEMATOCRIT 37.3 % (35.4-49); HEMOGLOBIN 12.6 GM/dL (11.7-16.9); MCH 32.1 pg (25.7-33.7); MCHC 33.9 g/dl (32.0-35.9); MEAN CELL VOLUME 94.6 fl (80-96); MEAN PLT VOLUME 6.8 fl (7.5-11.1); MONO % 13.5 % (3.8-10.2); PLATELET COUNT 324 10^3/uL (134-434); RBC 3.94 M/mm3 (4.00-5.60); RDW 17.1 % (11.9-15.9); WHITE BLOOD COUNT 8.6 K/mm3 (4.0-10.0)
[2023-01-23 09:13] LABS: POTASSIUM 4.6 mmol/L (3.5-5.1)
[2023-01-23 09:17] LABS: BLOOD UREA NITROGEN 19.7 mg/dL (7-18)
[2023-01-23 09:18] LABS: ALBUMIN 1.7 g/dl (3.4-5.0); CALCIUM 7.8 mg/dL (8.5-10.1)
[2023-01-23 09:20] LABS: CREATININE 0.8 mg/dL (0.55-1.3)
[2023-01-23 09:21] LABS: BILIRUBIN,TOTAL 0.7 mg/dL (0.2-1)
[2023-01-23] MEDS: PANTOPRAZOLE 40 MG TABLET PO SCH ×2 (10:18→22:07)
[2023-01-23] MEDS: PINDOLOL 5 MG TABLET PO SCH ×2 (10:18→22:05)
[2023-01-23] MEDS: APIXABAN 2.5 MG TABLET PO SCH ×2 (10:18→22:07)
[2023-01-23] MEDS: SODIUM ZIRCONIUM CYCLOSILICATE (LOKELMA) 5 GM PACKET PO SCH (10:18)
[2023-01-23] MEDS: AMINO ACIDS/PROTEIN HYDROLYS 30 ML LIQUID.PKT PO SCH ×2 (17:30→17:51)
[2023-01-24] MEDS: INSULIN SLIDING SCALE (NOVOLOG) 1 VIAL SQ SCH ×5 (00:21→22:57)
[2023-01-24 08:19] LABS: BASO % 0.7 % (0-2.0); EOS % 0.6 % (0-4.5); HEMATOCRIT 36.7 % (35.4-49); HEMOGLOBIN 12.4 GM/dL (11.7-16.9); LYMPH % 13.7 % (8-40); MCH 31.8 pg (25.7-33.7); MCHC 33.7 g/dl (32.0-35.9); MEAN CELL VOLUME 94.3 fl (80-96); MONO % 13.6 % (3.8-10.2); NEUT % 71.4 % (42.8-82.8); PLATELET COUNT 348 10^3/uL (134-434); RBC 3.89 M/mm3 (4.00-5.60); WHITE BLOOD COUNT 8.6 K/mm3 (4.0-10.0)
[2023-01-24] MEDS: AMINO ACIDS/PROTEIN HYDROLYS 30 ML LIQUID.PKT PO SCH ×3 (09:20→18:34)
[2023-01-24 09:34] LABS: POTASSIUM 4.7 mmol/L (3.5-5.1)
[2023-01-24 09:38] LABS: ALBUMIN 1.6 g/dl (3.4-5.0); BLOOD UREA NITROGEN 22.5 mg/dL (7-18); CALCIUM 7.8 mg/dL (8.5-10.1); MAGNESIUM 1.9 mg/dL (1.8-2.4)
[2023-01-24 09:41] LABS: CREATININE 0.8 mg/dL (0.55-1.3)
[2023-01-24 09:43] LABS: BILIRUBIN,TOTAL 0.7 mg/dL (0.2-1); TOT PROT 4.8 g/dl (6.4-8.2)
[2023-01-24] MEDS: SODIUM ZIRCONIUM CYCLOSILICATE (LOKELMA) 5 GM PACKET PO SCH (11:55)
[2023-01-24] MEDS: PANTOPRAZOLE 40 MG TABLET PO SCH ×2 (11:56→22:22)
[2023-01-24] MEDS: FUROSEMIDE 20 MG TABLET (FP) PO SCH (11:56)
[2023-01-24] MEDS: SPIRONOLACTONE 25 MG TABLET PO SCH (11:56)
[2023-01-24] MEDS: APIXABAN 2.5 MG TABLET PO SCH ×2 (11:56→22:22)
[2023-01-24] MEDS: PINDOLOL 5 MG TABLET PO SCH ×2 (11:58→22:57)
[2023-01-25] MEDS: INSULIN SLIDING SCALE (NOVOLOG) 1 VIAL SQ SCH ×4 (07:30→22:44)
[2023-01-25 10:12] LABS: BASO % 0.8 % (0-2.0); EOS % 0.4 % (0-4.5); HEMATOCRIT 40.2 % (35.4-49); HEMOGLOBIN 13.1 GM/dL (11.7-16.9); LYMPH % 10.7 % (8-40); MCH 31.4 pg (25.7-33.7); MCHC 32.5 g/dl (32.0-35.9); MEAN CELL VOLUME 96.8 fl (80-96); MEAN PLT VOLUME 7.3 fl (7.5-11.1); MONO % 12.5 % (3.8-10.2); NEUT % 75.6 % (42.8-82.8); PLATELET COUNT 393 10^3/uL (134-434); RBC 4.15 M/mm3 (4.00-5.60); RDW 16.5 % (11.9-15.9)
[2023-01-25] MEDS: SODIUM ZIRCONIUM CYCLOSILICATE (LOKELMA) 5 GM PACKET PO SCH (10:22)
[2023-01-25] MEDS: AMINO ACIDS/PROTEIN HYDROLYS 30 ML LIQUID.PKT PO SCH ×2 (10:22→18:57)
[2023-01-25] MEDS: PANTOPRAZOLE 40 MG TABLET PO SCH ×2 (10:23→22:41)
[2023-01-25] MEDS: FUROSEMIDE 20 MG TABLET (FP) PO SCH (10:23)
[2023-01-25] MEDS: PINDOLOL 5 MG TABLET PO SCH ×2 (10:23→22:45)
[2023-01-25] MEDS: SPIRONOLACTONE 25 MG TABLET PO SCH (10:23)
[2023-01-25] MEDS: APIXABAN 2.5 MG TABLET PO SCH ×2 (10:23→22:40)
[2023-01-25 10:29] LABS: POTASSIUM 4.5 mmol/L (3.5-5.1)
[2023-01-25 10:55] LABS: CALCIUM 7.8 mg/dL (8.5-10.1)
[2023-01-25 10:56] LABS: ALBUMIN 1.7 g/dl (3.4-5.0); MAGNESIUM 2.1 mg/dL (1.8-2.4)
[2023-01-25 10:59] LABS: CREATININE 0.9 mg/dL (0.55-1.3)
[2023-01-25 11:00] LABS: TOT PROT 5.3 g/dl (6.4-8.2)
[2023-01-25 11:01] LABS: BILIRUBIN,TOTAL 0.8 mg/dL (0.2-1)
[2023-01-25 22:10] VITALS: BP 104/65; PULSE 98; TEMP 98
== END 2023-01-26 01:30 | DRG 378 ==
LOC: JER 19:34 → JERBED 20:08 → J4S 01-03 10:38 → J8W 01-14 20:58
PROVIDERS: ADMIT Internal Medicine; ATTEND Nurse Practitioner Acute Care
PROC: 0DB68ZX Excision of Stomach, Via Natural or Artificial Opening Endoscopic, Diagnostic (ICD-10-PCS; 2023-01-04)
PROC: 0W9G3ZZ Drainage of Peritoneal Cavity, Percutaneous Approach (ICD-10-PCS; 2023-01-11)
PROC: 0W9G3ZZ Drainage of Peritoneal Cavity, Percutaneous Approach (ICD-10-PCS; principal; 2023-01-14)
PROC: 0FD03ZX Extraction of Liver, Percutaneous Approach, Diagnostic (ICD-10-PCS; 2023-01-14)
DX: K29.61 Other gastritis with bleeding (principal); E46 Unspecified protein-calorie malnutrition; I47.1 Supraventricular tachycardia; I50.22 Chronic systolic (congestive) heart failure; N39.0 Urinary tract infection, site not specified; R18.8 Other ascites; J90 Pleural effusion, not elsewhere classified; R64 Cachexia; K74.60 Unspecified cirrhosis of liver; D64.9 Anemia, unspecified; R16.0 Hepatomegaly, not elsewhere classified; K22.70 Barrett's esophagus without dysplasia; I48.0 Paroxysmal atrial fibrillation; K44.9 Diaphragmatic hernia without obstruction or gangrene; Z68.20 Body mass index [BMI] 20.0-20.9, adult; E86.0 Dehydration; I25.10 Atherosclerotic heart disease of native coronary artery without angina pectoris; D48.9 Neoplasm of uncertain behavior, unspecified
CPT/HCPCS: 36415; 36600; 47000; 49406; 71045-TC-FY; 71275-TC; 74174-TC; 74183-TC; 76705-TC; 76942-TC; 77012-TC; 80048; 80053; 81003; 82042; 82105; 82140; 82150; 82272; 82378; 82465; 82550; 82607; 82728; 82746; 82784; 82803; 82945; 82962; 82977; 83516; 83540; 83550; 83605; 83615; 83690; 83735; 83880; 83986; 84100; 84157; 84466; 84478; 84484; 85025; 85027; 85045; 85610; 85730; 86038; 86140; 86301; 86704; 86708; 86709; 86803; 87070; 87075; 87102; 87116; 87205; 87206; 87210; 87340; 87517; 87635; 87899; 88108; 88305-TC; 88307-TC; 93005; 93010; 93306-TC; 94010; 97116-GP; 97162-GP; 99285-25; A9579; P9047; Q9967

== ENCOUNTER 2023-02-08 16:51 | Inpatient (IN) | payer OTHER ==
[2023-02-08 17:33] VITALS: BMI 24.3
[2023-02-08] MEDS ORDERED: LACTATED RINGERS SOLUTION 1000 ML INFUS.BAG IV ONE (18:20)
[2023-02-08 19:32] LABS: BASO % 0.3 % (0-2.0); EOS % 0.7 % (0-4.5); LYMPH % 10.3 % (8-40); MCH 32.1 pg (25.7-33.7); MCHC 33.2 g/dl (32.0-35.9); MEAN CELL VOLUME 96.7 fl (80-96); MEAN PLT VOLUME 7.2 fl (7.5-11.1); MONO % 8.5 % (3.8-10.2); NEUT % 80.2 % (42.8-82.8); PLATELET COUNT 421 10^3/uL (134-434); RBC 4.04 M/mm3 (4.00-5.60); RDW 15.5 % (11.9-15.9); WHITE BLOOD COUNT 11.5 K/mm3 (4.0-10.0)
[2023-02-08 19:37] LABS: EPI CELLS 7 /uL (0-25.1); HYALINE CASTS 1 /uL (0-3.1); PH,URINE 5.5 (5.0-8.0); URINE APPEARANCE CLEAR; URINE BACTERIA >9,000 /uL (0-1359); URINE BILIRUBIN NEGATIVE (NEGATIVE); URINE COLOR YELLOW; URINE GLUCOSE (UA) NEGATIVE (NEGATIVE); URINE KETONE NEGATIVE (NEGATIVE); URINE LEUK ESTERASE 2+ (NEGATIVE); URINE NITRITE POSITIVE (NEGATIVE); URINE PROTEIN NEGATIVE (NEGATIVE); URINE RBC 2243 /uL (0-23.9); URINE UROBILINOGEN 0.2 mg/dL (0.2-1.0); URINE WBC 185 /uL (0-25.8)
[2023-02-08 19:51] LABS: POTASSIUM 5.6 mmol/L (3.5-5.1)
[2023-02-08 19:53] LABS: CALCIUM 7.8 mg/dL (8.5-10.1)
[2023-02-08 19:54] LABS: BLOOD UREA NITROGEN 40.7 mg/dL (7-18); MAGNESIUM 2.3 mg/dL (1.8-2.4)
[2023-02-08 19:57] LABS: CREATININE 1.2 mg/dL (0.55-1.3); PHOSPHOROUS 3.4 mg/dL (2.5-4.9)
[2023-02-08 19:59] LABS: BILIRUBIN,TOTAL 0.4 mg/dL (0.2-1); TOT PROT 5.8 g/dl (6.4-8.2)
[2023-02-08] MEDS ORDERED: CEFTRIAXONE 1 GM/50 ML BAG ONE (20:09)
[2023-02-08] MEDS ORDERED: INSULIN REGULAR HUMAN 100 UNITS/ML *VIAL IVPUSH ONE (20:23)
[2023-02-08] MEDS ORDERED: CALCIUM GLUCONATE 10% - 1,000 MG/10 ML VIAL IVPUSH ONE (20:27)
[2023-02-08] MEDS ORDERED: SODIUM CHLORIDE 0.9% 500 ML INFUS.BAG IV ONE (20:29)
[2023-02-08] MEDS ORDERED: DEXTROSE 50%-WATER - 25 GM/50 ML VIAL IVPUSH ONE (20:29)
[2023-02-08] MEDS ORDERED: SODIUM ZIRCONIUM CYCLOSILICATE (LOKELMA) 5 GM PACKET PO SCH ×2 (20:30)
[2023-02-08] MEDS ORDERED: CALCIUM CHLORIDE 1 GM/10 ML *DISP.SYRIN ONE (20:31)
[2023-02-08] MEDS ORDERED: INSULIN REGULAR HUMAN 100 UNITS/ML *VIAL ONE (20:32)
[2023-02-08] MEDS ORDERED: DEXTROSE 50%-WATER 25 GM/50 ML DISP.SYRIN ONE (20:34)
[2023-02-08] MEDS ORDERED: IBUPROFEN 600 MG TABLET (FP) PO ONE (20:39)
[2023-02-08] MEDS ORDERED: HYDROmorphone HCl 2 MG/ML VIAL IVPUSH PRN (23:01)
[2023-02-09] MEDS ORDERED: cloNIDine HCL 0.1 MG TABLET PO SCH ×2 (06:00→07:42)
[2023-02-09 06:23] LABS: HEMATOCRIT 44.4 % (35.4-49); HEMOGLOBIN 14.4 GM/dL (11.7-16.9); MCH 31.6 pg (25.7-33.7); MCHC 32.4 g/dl (32.0-35.9); MEAN CELL VOLUME 97.4 fl (80-96); MEAN PLT VOLUME 7.1 fl (7.5-11.1); PLATELET COUNT 397 10^3/uL (134-434); RBC 4.56 M/mm3 (4.00-5.60); RDW 15.5 % (11.9-15.9); WHITE BLOOD COUNT 12.8 K/mm3 (4.0-10.0)
[2023-02-09 06:41] LABS: POTASSIUM 5.2 mmol/L (3.5-5.1)
[2023-02-09 06:43] LABS: CALCIUM 8.8 mg/dL (8.5-10.1)
[2023-02-09 06:44] LABS: BLOOD UREA NITROGEN 42.5 mg/dL (7-18); MAGNESIUM 2.2 mg/dL (1.8-2.4)
[2023-02-09 06:46] LABS: PHOSPHOROUS 3.6 mg/dL (2.5-4.9)
[2023-02-09 06:47] LABS: CREATININE 1.1 mg/dL (0.55-1.3)
[2023-02-09 06:48] LABS: BILIRUBIN,TOTAL 0.7 mg/dL (0.2-1); TOT PROT 6.2 g/dl (6.4-8.2)
[2023-02-09] MEDS ORDERED: HYDROmorphone HCl 2 MG/ML VIAL IVPUSH ONE (07:00)
[2023-02-09] MEDS ORDERED: HYDROmorphone HCl 2 MG/ML VIAL ONE (07:06)
[2023-02-09] MEDS ORDERED: TAMSULOSIN HCL 0.4 MG CAP ONE (08:40)
[2023-02-09] MEDS: AMINO ACIDS/PROTEIN HYDROLYS 30 ML LIQUID.PKT PO SCH (08:58)
[2023-02-09] MEDS: TAMSULOSIN HCL 0.4 MG CAP PO SCH (09:00)
[2023-02-09] MEDS ORDERED: LACTULOSE 20 GM/30 ML UDC (FOR ORAL USE ONLY) PO SCH (10:00)
[2023-02-09] MEDS ORDERED: APIXABAN 2.5 MG TABLET PO SCH (10:00)
[2023-02-09] MEDS ORDERED: ENOXAPARIN NA (PORCINE) 40 MG/0.4 ML DISP.SYRIN SQ SCH (10:00)
[2023-02-09] MEDS ORDERED: SODIUM ZIRCONIUM CYCLOSILICATE (LOKELMA) 5 GM PACKET PO SCH (10:00)
[2023-02-09] MEDS ORDERED: PANTOPRAZOLE 40 MG TABLET PO SCH (10:00)
[2023-02-09] MEDS ORDERED: FUROSEMIDE 20 MG TABLET (FP) PO SCH (10:00)
[2023-02-09] MEDS ORDERED: SPIRONOLACTONE 25 MG TABLET PO SCH (10:00)
[2023-02-09] MEDS: LACTATED RINGERS SOLUTION 1,000 ML/1,000 ML INFUS.BAG IV SCH (15:35)
[2023-02-09] MEDS: LIDOCAINE 5% TOPICAL PATCH TP SCH (17:04)
[2023-02-09] MEDS: INSULIN SLIDING SCALE (NOVOLOG) 1 VIAL SQ SCH (19:42)
[2023-02-09] MEDS: LIDOCAINE PATCH REMOVAL MC SCH (21:38)
[2023-02-09] MEDS ORDERED: INSULIN SLIDING SCALE (NOVOLOG) 1 VIAL SQ SCH (22:00)
[2023-02-10] MEDS: INSULIN SLIDING SCALE (NOVOLOG) 1 VIAL SQ SCH ×4 (02:15→17:50)
[2023-02-10] MEDS ORDERED: ONDANSETRON 4 MG/2 ML VIAL IVPUSH ONE (03:05)
[2023-02-10] MEDS: LACTATED RINGERS SOLUTION 1,000 ML/1,000 ML INFUS.BAG IV SCH (04:04)
[2023-02-10] MEDS ORDERED: DEXTROSE 5%-NORMAL SALINE 1,000 ML IV SCH (08:00)
[2023-02-10 09:56] LABS: INR 1.36 (0.83-1.09); PROTHROMBIN TIME (PATIENT) 15.7 SEC (9.7-13.0)
[2023-02-10 09:57] LABS: HEMATOCRIT 38.8 % (35.4-49); HEMOGLOBIN 12.4 GM/dL (11.7-16.9); MCHC 31.9 g/dl (32.0-35.9); MEAN CELL VOLUME 97.1 fl (80-96); MEAN PLT VOLUME 7.3 fl (7.5-11.1); PLATELET COUNT 388 10^3/uL (134-434); RDW 15.4 % (11.9-15.9); WHITE BLOOD COUNT 21.4 K/mm3 (4.0-10.0)
[2023-02-10] MEDS ORDERED: FUROSEMIDE 40 MG/4 ML INJECTABLE VIAL IVPB SCH (10:00)
[2023-02-10 10:24] LABS: ALBUMIN 1.9 g/dl (3.4-5.0); BLOOD UREA NITROGEN 53.2 mg/dL (7-18); CALCIUM 8.4 mg/dL (8.5-10.1); MAGNESIUM 2.3 mg/dL (1.8-2.4)
[2023-02-10 10:27] LABS: CREATININE 1.4 mg/dL (0.55-1.3)
[2023-02-10 10:29] LABS: BILIRUBIN,TOTAL 0.9 mg/dL (0.2-1); TOT PROT 5.6 g/dl (6.4-8.2)
[2023-02-10] MEDS: LIDOCAINE 5% TOPICAL PATCH TP SCH (10:29)
[2023-02-10] MEDS: PANTOPRAZOLE SODIUM 40 MG VIAL IVPUSH SCH (10:29)
[2023-02-10] MEDS ORDERED: FUROSEMIDE 40 MG/4 ML INJECTABLE VIAL IVPB ONE (11:45)
[2023-02-10] MEDS: DEXTROSE 5%-NORMAL SALINE 1,000 ML IV SCH (11:46)
[2023-02-10] MEDS: ENOXAPARIN NA (PORCINE) 80 MG/0.8 ML DISP.SYRIN SQ SCH ×2 (12:13→23:57)
[2023-02-10 12:39] LABS: ANISOCYTOSIS 0; MACROCYTOSIS 0; OVALOCYTE 1+
[2023-02-10] MEDS ORDERED: SODIUM CHLORIDE 0.9% 1000 ML INFUS.BAG IV ONE (17:25)
[2023-02-10] MEDS ORDERED: SODIUM CHLORIDE 500 ML IV STA (19:43)
[2023-02-10] MEDS ORDERED: CEFEPIME HCL 1 GM VIAL (RESTRICTED TO ID) IVPB ONE (19:44)
[2023-02-10] MEDS ORDERED: VANCOMYCIN/WATER FOR INJ (PEG) 1,000 MG/200 ML BAG IVPB ONE (20:00)
[2023-02-10] MEDS ORDERED: CEFEPIME 1 GM in DEXTROSE 5%-WATER 100 ML IVPB ONE (20:00)
[2023-02-10] MEDS: ALBUMIN HUMAN 25% 12.5 GM/50 ML VIAL IV SCH ×4 (20:26→23:22)
[2023-02-10] MEDS: LIDOCAINE PATCH REMOVAL MC SCH (23:54)
[2023-02-11] MEDS: MIDODRINE HCL 5 MG TABLET PO SCH ×4 (01:25→17:28)
[2023-02-11] MEDS: INSULIN SLIDING SCALE (NOVOLOG) 1 VIAL SQ SCH ×4 (01:37→18:02)
[2023-02-11] MEDS: LIDOCAINE 5% TOPICAL PATCH TP SCH (09:56)
[2023-02-11] MEDS: ENOXAPARIN NA (PORCINE) 80 MG/0.8 ML DISP.SYRIN SQ SCH (09:57)
[2023-02-11] MEDS: PANTOPRAZOLE SODIUM 40 MG VIAL IVPUSH SCH (09:57)
[2023-02-11] MEDS: ERTAPENEM SODIUM 1 GM in SODIUM CHLORIDE 50 ML IVPB SCH (10:01)
[2023-02-11 12:29] LABS: BASO % 0.2 % (0-2.0); HEMATOCRIT 34.2 % (35.4-49); HEMOGLOBIN 10.8 GM/dL (11.7-16.9); MCH 31.1 pg (25.7-33.7); MCHC 31.7 g/dl (32.0-35.9); MEAN CELL VOLUME 98.1 fl (80-96); MEAN PLT VOLUME 7.2 fl (7.5-11.1); MONO % 6.2 % (3.8-10.2); NEUT % 89.6 % (42.8-82.8); PLATELET COUNT 288 10^3/uL (134-434); RBC 3.49 M/mm3 (4.00-5.60); RDW 15.4 % (11.9-15.9); WHITE BLOOD COUNT 14.5 K/mm3 (4.0-10.0)
[2023-02-11 12:37] LABS: INR 1.56 (0.83-1.09)
[2023-02-11 13:00] LABS: POTASSIUM 4.3 mmol/L (3.5-5.1)
[2023-02-11 13:02] LABS: CALCIUM 7.6 mg/dL (8.5-10.1)
[2023-02-11 13:03] LABS: BLOOD UREA NITROGEN 49.3 mg/dL (7-18); MAGNESIUM 2.3 mg/dL (1.8-2.4)
[2023-02-11 13:06] LABS: CREATININE 1.3 mg/dL (0.55-1.3); PHOSPHOROUS 3.2 mg/dL (2.5-4.9)
[2023-02-11 13:07] LABS: BILIRUBIN,TOTAL 0.6 mg/dL (0.2-1)
[2023-02-11 13:23] LABS: ALBUMIN 2.3 g/dl (3.4-5.0)
[2023-02-11] MEDS: DEXTROSE 5%-NORMAL SALINE 1,000 ML IV SCH (16:06)
[2023-02-11] MEDS: AMINO ACIDS/PROTEIN HYDROLYS 30 ML LIQUID.PKT PO SCH (17:28)
[2023-02-11] MEDS ORDERED: APIXABAN 2.5 MG TABLET PO SCH (22:00)
[2023-02-12] MEDS: LIDOCAINE PATCH REMOVAL MC SCH ×2 (01:14→23:20)
[2023-02-12] MEDS: PINDOLOL 5 MG PO SCH ×2 (01:14→14:02)
[2023-02-12] MEDS: MIRTAZAPINE 15 MG TABLET (FP) PO SCH ×2 (01:14→22:30)
[2023-02-12] MEDS: INSULIN SLIDING SCALE (NOVOLOG) 1 VIAL SQ SCH ×2 (01:30→06:26)
[2023-02-12] MEDS: LIDOCAINE 5% TOPICAL PATCH TP SCH (11:02)
[2023-02-12] MEDS: MIDODRINE HCL 5 MG TABLET PO SCH ×2 (11:03→14:43)
[2023-02-12] MEDS: PANTOPRAZOLE SODIUM 40 MG VIAL IVPUSH SCH (11:03)
[2023-02-12] MEDS: ERTAPENEM SODIUM 1 GM in SODIUM CHLORIDE 50 ML IVPB SCH (11:03)
[2023-02-12] MEDS: AMINO ACIDS/PROTEIN HYDROLYS 30 ML LIQUID.PKT PO SCH ×2 (11:04→17:28)
[2023-02-12] MEDS: TAMSULOSIN HCL 0.4 MG CAP PO SCH (11:05)
[2023-02-12] MEDS: AMINO ACIDS 4.25%/D5W 1,000 ML IV SCH (15:25)
[2023-02-12 15:43] LABS: BF WBC & OTHER NUCLEATED CELLS 96 /mm3
[2023-02-12 16:07] LABS: BODY FLUID MONOCYTE 55 %
[2023-02-12] MEDS: PINDOLOL 5 MG TABLET PO SCH (22:30)
[2023-02-13 09:15] LABS: HEMATOCRIT 34.2 % (35.4-49); MCH 31.3 pg (25.7-33.7); MCHC 32.1 g/dl (32.0-35.9); MEAN CELL VOLUME 97.5 fl (80-96); MEAN PLT VOLUME 6.8 fl (7.5-11.1); PLATELET COUNT 262 10^3/uL (134-434); RBC 3.51 M/mm3 (4.00-5.60); RDW 15.5 % (11.9-15.9); WHITE BLOOD COUNT 9.6 K/mm3 (4.0-10.0)
[2023-02-13 09:52] LABS: POTASSIUM 3.6 mmol/L (3.5-5.1)
[2023-02-13 09:54] LABS: CALCIUM 7.5 mg/dL (8.5-10.1)
[2023-02-13 09:55] LABS: BLOOD UREA NITROGEN 42.9 mg/dL (7-18); MAGNESIUM 2.1 mg/dL (1.8-2.4)
[2023-02-13 09:57] LABS: CREATININE 0.8 mg/dL (0.55-1.3)
[2023-02-13 09:59] LABS: BILIRUBIN,TOTAL 0.6 mg/dL (0.2-1); TOT PROT 4.8 g/dl (6.4-8.2)
[2023-02-13 10:00] LABS: ALBUMIN 1.8 g/dl (3.4-5.0); PHOSPHOROUS 1.7 mg/dL (2.5-4.9)
[2023-02-13] MEDS: ERTAPENEM SODIUM 1 GM in SODIUM CHLORIDE 50 ML IVPB SCH (10:12)
[2023-02-13] MEDS: LIDOCAINE 5% TOPICAL PATCH TP SCH (10:12)
[2023-02-13] MEDS: PANTOPRAZOLE SODIUM 40 MG VIAL IVPUSH SCH (10:12)
[2023-02-13] MEDS: PINDOLOL 5 MG TABLET PO SCH ×2 (10:13→22:05)
[2023-02-13] MEDS: AMINO ACIDS/PROTEIN HYDROLYS 30 ML LIQUID.PKT PO SCH ×2 (10:13→17:17)
[2023-02-13] MEDS: TAMSULOSIN HCL 0.4 MG CAP PO SCH (10:13)
[2023-02-13] MEDS ORDERED: NAPH,MB-DB/K PH,MBDB POWDER PACKET PO ONE (11:15)
[2023-02-13] MEDS: AMINO ACIDS 4.25%/D5W 1,000 ML IV SCH (14:05)
[2023-02-13] MEDS: SPIRONOLACTONE 25 MG TABLET PO SCH (17:17)
[2023-02-13] MEDS: MIRTAZAPINE 15 MG TABLET (FP) PO SCH (22:13)
[2023-02-13] MEDS: LIDOCAINE PATCH REMOVAL MC SCH (22:23)
[2023-02-14] MEDS: TAMSULOSIN HCL 0.4 MG CAP PO SCH ×2 (08:31→11:52)
[2023-02-14] MEDS: AMINO ACIDS/PROTEIN HYDROLYS 30 ML LIQUID.PKT PO SCH ×3 (08:31→18:16)
[2023-02-14 09:55] LABS: HEMATOCRIT 38.1 % (35.4-49); HEMOGLOBIN 12.3 GM/dL (11.7-16.9); MCH 31.6 pg (25.7-33.7); MCHC 32.3 g/dl (32.0-35.9); MEAN CELL VOLUME 98.1 fl (80-96); MEAN PLT VOLUME 7.4 fl (7.5-11.1); PLATELET COUNT 268 10^3/uL (134-434); RBC 3.88 M/mm3 (4.00-5.60); RDW 15.8 % (11.9-15.9); WHITE BLOOD COUNT 10.3 K/mm3 (4.0-10.0)
[2023-02-14 09:58] LABS: INR 1.22 (0.83-1.09); PROTHROMBIN TIME (PATIENT) 14.1 SEC (9.7-13.0)
[2023-02-14 10:07] LABS: POTASSIUM 4.5 mmol/L (3.5-5.1)
[2023-02-14 10:09] LABS: BLOOD UREA NITROGEN 40.5 mg/dL (7-18); CALCIUM 7.5 mg/dL (8.5-10.1)
[2023-02-14 10:10] LABS: ALBUMIN 1.9 g/dl (3.4-5.0)
[2023-02-14 10:13] LABS: CREATININE 0.8 mg/dL (0.55-1.3)
[2023-02-14 10:14] LABS: BILIRUBIN,TOTAL 0.6 mg/dL (0.2-1)
[2023-02-14] MEDS: SPIRONOLACTONE 25 MG TABLET PO SCH ×2 (10:28→11:52)
[2023-02-14] MEDS: PINDOLOL 5 MG TABLET PO SCH ×2 (10:28→21:35)
[2023-02-14] MEDS: ERTAPENEM SODIUM 1 GM in SODIUM CHLORIDE 50 ML IVPB SCH (10:54)
[2023-02-14] MEDS: PANTOPRAZOLE SODIUM 40 MG VIAL IVPUSH SCH (10:54)
[2023-02-14] MEDS: LIDOCAINE 5% TOPICAL PATCH TP SCH (10:54)
[2023-02-14] MEDS: FUROSEMIDE 20 MG TABLET (FP) PO SCH (11:55)
[2023-02-14] MEDS: AMINO ACIDS 4.25%/D5W 1,000 ML IV SCH ×2 (13:57→17:14)
[2023-02-14 15:08] LABS: BODY FLUID ALBUMIN 0.9 g/dL (Not Estab.)
[2023-02-14] MEDS: THIAMINE HCL 200 MG/2 ML VIAL IVPB SCH (18:17)
[2023-02-14] MEDS: MIRTAZAPINE 15 MG TABLET (FP) PO SCH (21:34)
[2023-02-14] MEDS: LIDOCAINE PATCH REMOVAL MC SCH (21:42)
[2023-02-15 09:24] LABS: HEMATOCRIT 38.2 % (35.4-49); HEMOGLOBIN 12.1 GM/dL (11.7-16.9); MCHC 31.6 g/dl (32.0-35.9); MEAN CELL VOLUME 98.2 fl (80-96); MEAN PLT VOLUME 7.6 fl (7.5-11.1); PLATELET COUNT 210 10^3/uL (134-434); RBC 3.89 M/mm3 (4.00-5.60); RDW 15.8 % (11.9-15.9); WHITE BLOOD COUNT 12.6 K/mm3 (4.0-10.0)
[2023-02-15 09:48] LABS: POTASSIUM 3.8 mmol/L (3.5-5.1)
[2023-02-15 09:55] LABS: CALCIUM 7.7 mg/dL (8.5-10.1)
[2023-02-15 09:56] LABS: ALBUMIN 1.8 g/dl (3.4-5.0); BLOOD UREA NITROGEN 47.9 mg/dL (7-18)
[2023-02-15 09:59] LABS: CREATININE 0.7 mg/dL (0.55-1.3); PHOSPHOROUS 1.4 mg/dL (2.5-4.9)
[2023-02-15 10:00] LABS: TOT PROT 5.1 g/dl (6.4-8.2)
[2023-02-15 10:01] LABS: BILIRUBIN,TOTAL 0.6 mg/dL (0.2-1)
[2023-02-15] MEDS: LIDOCAINE 5% TOPICAL PATCH TP SCH (10:11)
[2023-02-15] MEDS: FUROSEMIDE 20 MG TABLET (FP) PO SCH (10:12)
[2023-02-15] MEDS: AMINO ACIDS/PROTEIN HYDROLYS 30 ML LIQUID.PKT PO SCH ×2 (10:12→19:10)
[2023-02-15] MEDS: PINDOLOL 5 MG TABLET PO SCH ×2 (10:12→23:18)
[2023-02-15] MEDS: TAMSULOSIN HCL 0.4 MG CAP PO SCH (10:12)
[2023-02-15] MEDS: SPIRONOLACTONE 25 MG TABLET PO SCH (10:13)
[2023-02-15 11:31] LABS: INR 1.24 (0.83-1.09); PROTHROMBIN TIME (PATIENT) 14.3 SEC (9.7-13.0)
[2023-02-15] MEDS: PANTOPRAZOLE SODIUM 40 MG VIAL IVPUSH SCH (12:15)
[2023-02-15] MEDS: ERTAPENEM SODIUM 1 GM in SODIUM CHLORIDE 50 ML IVPB SCH (12:15)
[2023-02-15] MEDS: AMINO ACIDS 4.25%/D5W 1,000 ML IV SCH ×2 (12:16→21:40)
[2023-02-15] MEDS: THIAMINE HCL 200 MG/2 ML VIAL IVPB SCH (14:14)
[2023-02-15 14:36] LABS: ANISOCYTOSIS 2+; MACROCYTOSIS 0; OVALOCYTE 2+
[2023-02-15] MEDS: MIRTAZAPINE 15 MG TABLET (FP) PO SCH (23:18)
[2023-02-15] MEDS: LIDOCAINE PATCH REMOVAL MC SCH (23:19)
[2023-02-16] MEDS: TAMSULOSIN HCL 0.4 MG CAP PO SCH (08:31)
[2023-02-16] MEDS: AMINO ACIDS/PROTEIN HYDROLYS 30 ML LIQUID.PKT PO SCH ×2 (08:31→17:34)
[2023-02-16] MEDS: PANTOPRAZOLE SODIUM 40 MG VIAL IVPUSH SCH (10:33)
[2023-02-16] MEDS: ERTAPENEM SODIUM 1 GM in SODIUM CHLORIDE 50 ML IVPB SCH (10:37)
[2023-02-16] MEDS: FUROSEMIDE 20 MG TABLET (FP) PO SCH (10:38)
[2023-02-16] MEDS: SPIRONOLACTONE 25 MG TABLET PO SCH (10:38)
[2023-02-16] MEDS: THIAMINE HCL 200 MG/2 ML VIAL IVPB SCH (10:39)
[2023-02-16] MEDS: LIDOCAINE 5% TOPICAL PATCH TP SCH (10:39)
[2023-02-16] MEDS: PINDOLOL 5 MG TABLET PO SCH ×2 (10:39→21:50)
[2023-02-16] MEDS: AMINO ACIDS 4.25%/D5W 1,000 ML IV SCH (11:00)
[2023-02-16] MEDS: MIRTAZAPINE 15 MG TABLET (FP) PO SCH (21:50)
[2023-02-16] MEDS: LIDOCAINE PATCH REMOVAL MC SCH (22:51)
[2023-02-17] MEDS: AMINO ACIDS 4.25%/D5W 1,000 ML IV SCH ×2 (01:04→15:32)
[2023-02-17] MEDS: AMINO ACIDS/PROTEIN HYDROLYS 30 ML LIQUID.PKT PO SCH ×2 (08:20→17:13)
[2023-02-17] MEDS: TAMSULOSIN HCL 0.4 MG CAP PO SCH (08:20)
[2023-02-17] MEDS: PINDOLOL 5 MG TABLET PO SCH ×2 (09:48→22:29)
[2023-02-17] MEDS: FUROSEMIDE 20 MG TABLET (FP) PO SCH (09:49)
[2023-02-17] MEDS: ERTAPENEM SODIUM 1 GM in SODIUM CHLORIDE 50 ML IVPB SCH (09:49)
[2023-02-17] MEDS: PANTOPRAZOLE SODIUM 40 MG VIAL IVPUSH SCH (09:49)
[2023-02-17] MEDS: SPIRONOLACTONE 25 MG TABLET PO SCH (09:49)
[2023-02-17] MEDS: LIDOCAINE 5% TOPICAL PATCH TP SCH (09:50)
[2023-02-17] MEDS ORDERED: NAPH,MB-DB/K PH,MBDB POWDER PACKET PO ONE (09:53)
[2023-02-17 10:45] LABS: POTASSIUM 3.7 mmol/L (3.5-5.1)
[2023-02-17 10:47] LABS: BLOOD UREA NITROGEN 58.6 mg/dL (7-18); CALCIUM 7.8 mg/dL (8.5-10.1)
[2023-02-17 10:49] LABS: BASO % 0.6 % (0-2.0); HEMATOCRIT 36.1 % (35.4-49); HEMOGLOBIN 11.6 GM/dL (11.7-16.9); LYMPH % 7.9 % (8-40); MCHC 32.2 g/dl (32.0-35.9); MEAN CELL VOLUME 96.1 fl (80-96); MEAN PLT VOLUME 7.9 fl (7.5-11.1); MONO % 7.4 % (3.8-10.2); NEUT % 83.1 % (42.8-82.8); PLATELET COUNT 170 10^3/uL (134-434); RBC 3.76 M/mm3 (4.00-5.60); RDW 15.7 % (11.9-15.9)
[2023-02-17 10:51] LABS: CREATININE 0.7 mg/dL (0.55-1.3)
[2023-02-17 13:28] LABS: PHOSPHOROUS 1.4 mg/dL (2.5-4.9)
[2023-02-17] MEDS ORDERED: POTASSIUM PHOSPHATE 30 MM in DEXTROSE 5%-WATER - 500 ML IVPB ONE (16:00)
[2023-02-17] MEDS: MIRTAZAPINE 15 MG TABLET (FP) PO SCH (22:28)
[2023-02-17] MEDS: LIDOCAINE PATCH REMOVAL MC SCH (22:29)
[2023-02-18] MEDS: AMINO ACIDS 4.25%/D5W 1,000 ML IV SCH ×2 (08:45→23:00)
[2023-02-18] MEDS: AMINO ACIDS/PROTEIN HYDROLYS 30 ML LIQUID.PKT PO SCH ×2 (08:46→17:19)
[2023-02-18] MEDS: TAMSULOSIN HCL 0.4 MG CAP PO SCH (08:46)
[2023-02-18 09:57] LABS: POTASSIUM 3.8 mmol/L (3.5-5.1)
[2023-02-18] MEDS: SPIRONOLACTONE 25 MG TABLET PO SCH (09:59)
[2023-02-18] MEDS: PINDOLOL 5 MG TABLET PO SCH ×2 (10:00→22:00)
[2023-02-18] MEDS: FUROSEMIDE 20 MG TABLET (FP) PO SCH (10:00)
[2023-02-18 10:08] LABS: CALCIUM 7.4 mg/dL (8.5-10.1)
[2023-02-18 10:09] LABS: BLOOD UREA NITROGEN 52.8 mg/dL (7-18)
[2023-02-18 10:12] LABS: CREATININE 0.6 mg/dL (0.55-1.3); PHOSPHOROUS 2.7 mg/dL (2.5-4.9)
[2023-02-18] MEDS: ERTAPENEM SODIUM 1 GM in SODIUM CHLORIDE 50 ML IVPB SCH (10:23)
[2023-02-18] MEDS: LIDOCAINE 5% TOPICAL PATCH TP SCH (10:23)
[2023-02-18] MEDS: PANTOPRAZOLE SODIUM 40 MG VIAL IVPUSH SCH (10:24)
[2023-02-18] MEDS ORDERED: MIDAZOLAM HCL 2 MG/2 ML SINGLE DOSE VIAL ONE (13:23)
[2023-02-18] MEDS ORDERED: FENTANYL CITRATE/PF 50 MCG/ML VIAL ONE (13:23)
[2023-02-18] MEDS ORDERED: GLUCAGON 1 MG KIT ONE (13:24)
[2023-02-18] MEDS ORDERED: SODIUM CHLORIDE 500 ML IV ONE (14:15)
[2023-02-18] MEDS ORDERED: GLUCAGON 1 MG KIT IVPUSH ONE (14:15)
[2023-02-18] MEDS ORDERED: FENTANYL CITRATE/PF 50 MCG/ML VIAL IVPUSH ONE ×2 (14:20→15:14)
[2023-02-18] MEDS ORDERED: MIDAZOLAM HCL 2 MG/2 ML SINGLE DOSE VIAL IVPUSH ONE ×2 (14:22→15:14)
[2023-02-18 19:56] LABS: BASO % 0.2 % (0-2.0); EOS % 0.6 % (0-4.5); HEMATOCRIT 33.5 % (35.4-49); LYMPH % 6.2 % (8-40); MCH 31.3 pg (25.7-33.7); MCHC 32.9 g/dl (32.0-35.9); MEAN CELL VOLUME 95.4 fl (80-96); MEAN PLT VOLUME 7.5 fl (7.5-11.1); PLATELET COUNT 171 10^3/uL (134-434); RBC 3.52 M/mm3 (4.00-5.60); RDW 15.9 % (11.9-15.9); WHITE BLOOD COUNT 12.3 K/mm3 (4.0-10.0)
[2023-02-18 20:04] LABS: INR 1.23 (0.83-1.09); PROTHROMBIN TIME (PATIENT) 14.2 SEC (9.7-13.0)
[2023-02-18] MEDS: MIRTAZAPINE 15 MG TABLET (FP) PO SCH (22:00)
[2023-02-18] MEDS: LIDOCAINE PATCH REMOVAL MC SCH (22:00)
[2023-02-19] MEDS: AMINO ACIDS/PROTEIN HYDROLYS 30 ML LIQUID.PKT PO SCH ×2 (08:33→17:37)
[2023-02-19] MEDS: TAMSULOSIN HCL 0.4 MG CAP PO SCH (08:33)
[2023-02-19 09:06] LABS: BASO % 0.8 % (0-2.0); EOS % 1.1 % (0-4.5); HEMOGLOBIN 11.2 GM/dL (11.7-16.9); LYMPH % 8.3 % (8-40); MCH 31.2 pg (25.7-33.7); MCHC 32.1 g/dl (32.0-35.9); MEAN CELL VOLUME 97.3 fl (80-96); MEAN PLT VOLUME 7.9 fl (7.5-11.1); MONO % 9.4 % (3.8-10.2); NEUT % 80.4 % (42.8-82.8); PLATELET COUNT 189 10^3/uL (134-434); RDW 15.8 % (11.9-15.9); WHITE BLOOD COUNT 9.4 K/mm3 (4.0-10.0)
[2023-02-19 09:28] LABS: POTASSIUM 3.7 mmol/L (3.5-5.1)
[2023-02-19 09:33] LABS: CALCIUM 7.6 mg/dL (8.5-10.1)
[2023-02-19 09:34] LABS: BLOOD UREA NITROGEN 46.8 mg/dL (7-18)
[2023-02-19 09:38] LABS: CREATININE 0.5 mg/dL (0.55-1.3)
[2023-02-19] MEDS: LIDOCAINE 5% TOPICAL PATCH TP SCH (10:14)
[2023-02-19] MEDS: AMINO ACIDS 4.25%/D5W 1,000 ML IV SCH (10:14)
[2023-02-19] MEDS: PANTOPRAZOLE SODIUM 40 MG VIAL IVPUSH SCH (10:14)
[2023-02-19] MEDS: ERTAPENEM SODIUM 1 GM in SODIUM CHLORIDE 50 ML IVPB SCH (10:15)
[2023-02-19] MEDS: SPIRONOLACTONE 25 MG TABLET PO SCH (10:15)
[2023-02-19] MEDS: PINDOLOL 5 MG TABLET PO SCH ×2 (10:15→22:30)
[2023-02-19] MEDS: FUROSEMIDE 20 MG TABLET (FP) PO SCH (10:15)
[2023-02-19] MEDS ORDERED: AMINO ACIDS 4.25%/D5W 1,000 ML IV SCH (13:23)
[2023-02-19] MEDS: MIRTAZAPINE 15 MG TABLET (FP) PO SCH (22:30)
[2023-02-19] MEDS: LIDOCAINE PATCH REMOVAL MC SCH (22:40)
[2023-02-20] MEDS ORDERED: AMINO ACIDS 4.25%/D5W 1,000 ML IV SCH (07:20)
[2023-02-20] MEDS: TAMSULOSIN HCL 0.4 MG CAP PO SCH (07:46)
[2023-02-20 09:49] LABS: BASO % 0.3 % (0-2.0); EOS % 2.4 % (0-4.5); HEMATOCRIT 32.6 % (35.4-49); HEMOGLOBIN 11.1 GM/dL (11.7-16.9); LYMPH % 9.8 % (8-40); MCH 32.6 pg (25.7-33.7); MEAN CELL VOLUME 95.7 fl (80-96); MEAN PLT VOLUME 7.5 fl (7.5-11.1); MONO % 10.6 % (3.8-10.2); NEUT % 76.9 % (42.8-82.8); PLATELET COUNT 188 10^3/uL (134-434); RBC 3.41 M/mm3 (4.00-5.60); RDW 16.1 % (11.9-15.9); WHITE BLOOD COUNT 8.5 K/mm3 (4.0-10.0)
[2023-02-20 09:51] LABS: INR 1.31 (0.83-1.09); PROTHROMBIN TIME (PATIENT) 15.2 SEC (9.7-13.0)
[2023-02-20] MEDS: PANTOPRAZOLE SODIUM 40 MG VIAL IVPUSH SCH (10:21)
[2023-02-20] MEDS: SPIRONOLACTONE 25 MG TABLET PO SCH (10:21)
[2023-02-20] MEDS: FUROSEMIDE 20 MG TABLET (FP) PO SCH (10:22)
[2023-02-20] MEDS: LIDOCAINE 5% TOPICAL PATCH TP SCH (10:22)
[2023-02-20] MEDS: PINDOLOL 5 MG TABLET PO SCH ×2 (10:23→22:29)
[2023-02-20 10:59] LABS: POTASSIUM 3.7 mmol/L (3.5-5.1)
[2023-02-20 11:03] LABS: ALBUMIN 1.5 g/dl (3.4-5.0)
[2023-02-20 11:06] LABS: CALCIUM 7.3 mg/dL (8.5-10.1); CREATININE 0.6 mg/dL (0.55-1.3)
[2023-02-20 11:08] LABS: TOT PROT 5.2 g/dl (6.4-8.2)
[2023-02-20] MEDS: MIRTAZAPINE 15 MG TABLET (FP) PO SCH (22:16)
[2023-02-21] MEDS ORDERED: PANTOPRAZOLE 40 MG TABLET PO SCH (10:00)
[2023-02-21 10:17] LABS: BASO % 0.5 % (0-2.0); EOS % 0.7 % (0-4.5); HEMATOCRIT 36.4 % (35.4-49); HEMOGLOBIN 12.1 GM/dL (11.7-16.9); LYMPH % 6.1 % (8-40); MCH 31.5 pg (25.7-33.7); MCHC 33.2 g/dl (32.0-35.9); MEAN CELL VOLUME 94.8 fl (80-96); MEAN PLT VOLUME 7.7 fl (7.5-11.1); MONO % 8.9 % (3.8-10.2); NEUT % 83.8 % (42.8-82.8); PLATELET COUNT 214 10^3/uL (134-434); RBC 3.84 M/mm3 (4.00-5.60); RDW 15.9 % (11.9-15.9); WHITE BLOOD COUNT 12.2 K/mm3 (4.0-10.0)
[2023-02-21] MEDS: LIDOCAINE PATCH REMOVAL MC SCH ×2 (10:36→23:13)
[2023-02-21] MEDS: FUROSEMIDE 20 MG TABLET (FP) PO SCH (10:43)
[2023-02-21] MEDS: SPIRONOLACTONE 25 MG TABLET PO SCH (10:43)
[2023-02-21] MEDS: PINDOLOL 5 MG TABLET PO SCH ×3 (10:43→21:23)
[2023-02-21] MEDS: LIDOCAINE 5% TOPICAL PATCH TP SCH (10:43)
[2023-02-21] MEDS: TAMSULOSIN HCL 0.4 MG CAP PO SCH (10:43)
[2023-02-21 10:48] LABS: ALBUMIN 1.7 g/dl (3.4-5.0)
[2023-02-21 10:49] LABS: BLOOD UREA NITROGEN 42.3 mg/dL (7-18); CALCIUM 7.5 mg/dL (8.5-10.1); MAGNESIUM 2.3 mg/dL (1.8-2.4)
[2023-02-21 10:51] LABS: CREATININE 0.7 mg/dL (0.55-1.3); TOT PROT 5.6 g/dl (6.4-8.2)
[2023-02-21] MEDS ORDERED: FAMOTIDINE 20 MG/2.5 ML ORAL LIQUID PEG SCH (14:48)
[2023-02-21] MEDS ORDERED: ALBUTEROL SO4 2.5/IPRATROPIUM 0.5 INH SOL 3 ML VIAL.NEB. NEB PRN (18:42)
[2023-02-21] MEDS: MIRTAZAPINE 15 MG TABLET (FP) PO SCH (21:23)
[2023-02-21] MEDS ORDERED: SODIUM CHLORIDE 1,000 ML IV STA (21:54)
[2023-02-21] MEDS ORDERED: ALBUMIN HUMAN 25% 12.5 GM/50 ML VIAL IV SCH ×2 (22:00→23:30)
[2023-02-21] MEDS ORDERED: APIXABAN 2.5 MG TABLET PO SCH (22:00)
[2023-02-21] MEDS ORDERED: ZINC OXIDE 20% TOPICAL OINTMENT 30 GM TUBE TP SCH (22:00)
[2023-02-21] MEDS ORDERED: APIXABAN 2.5 MG TABLET PEG SCH (22:00)
[2023-02-21 22:15] LABS: ARTERIAL BLD GAS O2 SATURATION 95.2 % (95-98); ARTERIAL BLOOD GAS BASE EXCESS -7.7 mmol/L (-2-2); ARTERIAL BLOOD GAS PO2 82.2 mmHg (80-100); ARTERIAL BLOOD GAS pH 7.302 (7.350-7.450)
[2023-02-21] MEDS ORDERED: NOREPINEPHRINE BITARTRATE 4,000 MCG in DEXTROSE 5%-WATER - 496 ML IV SCH (22:15)
[2023-02-21 22:17] LABS: ALLENS TEST POSITIVE
[2023-02-22] MEDS ORDERED: NOREPINEPHRINE BITARTRATE 4,000 MCG in DEXTROSE 5%-WATER - 496 ML IV SCH (01:45)
[2023-02-22 03:46] VITALS: BP 62/28; PULSE 102; RESP 32; TEMP 100.2
[2023-02-22] MEDS ORDERED: TAMSULOSIN HCL 0.4 MG CAP PO SCH ×2 (08:30)
[2023-02-22] MEDS ORDERED: FAMOTIDINE 20 MG/2.5 ML ORAL LIQUID PEG SCH (10:00)
== END 2023-02-21 23:05 | disposition expired | DRG 435 ==
LOC: JER 16:51 → JERBED 20:45 → J5S 02-09 10:30 → J7W 02-12 06:37 → J6S 02-20 19:12 → JICU 02-21 23:00 → J6S 02-22 00:06 → JICU 02-22 00:06 → UNDODISIN 02-22 01:32
PROVIDERS: ADMIT Internal Medicine; ATTEND Nurse Practitioner Acute Care
PROC: 0W9G3ZZ Drainage of Peritoneal Cavity, Percutaneous Approach (ICD-10-PCS; 2023-02-12)
PROC: 5A12012 Performance of Cardiac Output, Single, Manual (ICD-10-PCS; 2023-02-18)
PROC: 0W9G3ZZ Drainage of Peritoneal Cavity, Percutaneous Approach (ICD-10-PCS; 2023-02-18)
PROC: 0FB13ZX Excision of Right Lobe Liver, Percutaneous Approach, Diagnostic (ICD-10-PCS; 2023-02-18)
PROC: 0DH63UZ Insertion of Feeding Device into Stomach, Percutaneous Approach (ICD-10-PCS; 2023-02-18)
PROC: 0BH17EZ Insertion of Endotracheal Airway into Trachea, Via Natural or Artificial Opening (ICD-10-PCS; principal; 2023-02-21)
PROC: 5A1935Z Respiratory Ventilation, Less than 24 Consecutive Hours (ICD-10-PCS; 2023-02-21)
PROC: 06HN33Z Insertion of Infusion Device into Left Femoral Vein, Percutaneous Approach (ICD-10-PCS; 2023-02-21)
PROC: B54CZZA Ultrasonography of Left Lower Extremity Veins, Guidance (ICD-10-PCS; 2023-02-21)
DX: C22.0 Liver cell carcinoma (principal); A41.51 Sepsis due to Escherichia coli [E. coli]; E43 Unspecified severe protein-calorie malnutrition; N39.0 Urinary tract infection, site not specified; R18.8 Other ascites; K92.0 Hematemesis; R64 Cachexia; J44.9 Chronic obstructive pulmonary disease, unspecified; I25.10 Atherosclerotic heart disease of native coronary artery without angina pectoris; E11.9 Type 2 diabetes mellitus without complications; R62.7 Adult failure to thrive; Z68.24 Body mass index [BMI] 24.0-24.9, adult; K74.60 Unspecified cirrhosis of liver; K22.70 Barrett's esophagus without dysplasia; R79.89 Other specified abnormal findings of blood chemistry; N40.0 Benign prostatic hyperplasia without lower urinary tract symptoms; R91.1 Solitary pulmonary nodule; K57.30 Diverticulosis of large intestine without perforation or abscess without bleeding; I48.0 Paroxysmal atrial fibrillation; R29.6 Repeated falls; K21.9 Gastro-esophageal reflux disease without esophagitis; I46.9 Cardiac arrest, cause unspecified; R13.10 Dysphagia, unspecified; E87.5 Hyperkalemia
CPT/HCPCS: 0241U-QW; 36415; 36600; 47000; 49440; 71045-TC-FY; 74018-TC-FY; 74019-TC-FY; 74230-TC-FY; 76700-TC; 76942-TC; 80048; 80053; 81003; 82042; 82140; 82465; 82550; 82803; 82945; 82962; 83036; 83615; 83735; 83986; 84100; 84157; 84478; 85025; 85027; 85610; 86850; 86900; 86901; 87070; 87075; 87086; 87102; 87116; 87186; 87205; 87206; 87210; 87635; 88108; 88305-TC; 92611-GN; 93005; 93010; 93971; 97116-GP; 97161-GP; 99285-25; P9047